=== PATIENT | male | born 1945 | race Caucasian/White ===

== ENCOUNTER → 2021-07-26 16:27 | Outpatient (BNVA) | payer MEDICARE, MEDICAID, SELFPAY | PROVIDERS: Family Provider Physician Assistant Medical; PCP Physician Assistant Medical; Visit Provider Internal Medicine Cardiovascular Disease | DX: I50.33 Acute on chronic diastolic (congestive) heart failure (principal); M79.89 Other specified soft tissue disorders; R06.02 Shortness of breath; Z79.01 Long term (current) use of anticoagulants | CPT/HCPCS: 80048; 83880; 85025 ==

== ENCOUNTER → 2022-01-24 14:23 | Outpatient (BNVA) | payer MEDICARE, MEDICAID, SELFPAY | PROVIDERS: Family Provider Physician Assistant Medical; PCP Family Medicine; Visit Provider Internal Medicine Cardiovascular Disease | DX: I11.0 Hypertensive heart disease with heart failure (principal); I50.32 Chronic diastolic (congestive) heart failure; I48.11 Longstanding persistent atrial fibrillation; E03.9 Hypothyroidism, unspecified; M79.89 Other specified soft tissue disorders; L98.499 Non-pressure chronic ulcer of skin of other sites with unspecified severity | CPT/HCPCS: 36415; 80048; 83880; 99214 ==

== ENCOUNTER → 2022-02-02 10:10 | Outpatient (BNVA) | payer MEDICARE, MEDICAID, SELFPAY | PROVIDERS: Family Provider Physician Assistant Medical; PCP Family Medicine; Visit Provider Internal Medicine Cardiovascular Disease | DX: I50.32 Chronic diastolic (congestive) heart failure (principal); R00.1 Bradycardia, unspecified; M79.89 Other specified soft tissue disorders; R55 Syncope and collapse | CPT/HCPCS: 80048; 83880 ==

== ENCOUNTER → 2022-02-15 09:16 | Outpatient (BNVA) | payer MEDICARE, MEDICAID, SELFPAY | PROVIDERS: Family Provider Physician Assistant Medical; PCP Family Medicine; Visit Provider Internal Medicine Cardiovascular Disease | DX: I48.11 Longstanding persistent atrial fibrillation (principal); I50.32 Chronic diastolic (congestive) heart failure; M79.89 Other specified soft tissue disorders; R00.1 Bradycardia, unspecified; R55 Syncope and collapse; I10 Essential (primary) hypertension | CPT/HCPCS: 80048; 83880 ==

== ENCOUNTER 2022-02-16 12:48 | Outpatient (CLI) | payer MEDICARE, MEDICAID, SELFPAY ==
--- NOTE | 2022-02-16 15:00 | USCV_ITS ---
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 CONCLUSIONS 1. Noncompressible ankle vessels bilaterally 2. Possibly no significant arterial obstruction, based on the above findings. Dr Gene Del Rio MD [facility] (Electronically Signed) Final Date: 19 Feb 2022 16:04 S
== END 2022-02-16 12:49 | disposition home or self-care (01) ==
LOC: RAD 12:53
PROVIDERS: PCP Family Medicine; Visit Provider Internal Medicine Cardiovascular Disease
DX: L97.929 Non-pressure chronic ulcer of unspecified part of left lower leg with unspecified severity (principal); L97.919 Non-pressure chronic ulcer of unspecified part of right lower leg with unspecified severity
CPT/HCPCS: 93925

== ENCOUNTER 2022-03-29 11:03 | Outpatient (CLI) | payer MEDICARE, MEDICAID, SELFPAY ==
--- NOTE | 2022-03-29 11:12 | USCV_ITS ---
Ashkan Janine Age: 77 Gender: M : 1945 Exam Date: 03/29/2022 11:22 Ordering Phys: Gene Del Rio MD ([email or web address]) Technologist: Exam Location: [facility] [place] Indication: short of breath BP: 125 / 72 HR: 86 Rhythm: Sinus Technical Quality: Adequate MEASUREMENTS (Male / Female) Normal Values 2D ECHO LV Diastolic Diameter PLAX 4.1 cm 4.2 - 5.9 / 3.9 - 5.3 cm LV Systolic Diameter PLAX 2.0 cm IVS Diastolic Thickness 1.4 cm 0.6 - 1.0 / 0.6 - 0.9 cm IVS Systolic Thickness 1.6 cm LVPW Diastolic Thickness 1.5 cm 0.6 - 1.0 / 0.6 - 0.9 cm LVPW Systolic Thickness 2.1 cm LVOT Diameter 2.0 cm LV Ejection Fraction 2D Teich 82.9 % LV Ejection Fraction MOD 2C 64.5 % LV Ejection Fraction 2C AL 65.0 % LA Diameter 4.9 cm Aorta at Sinotubular Diameter 2.9 cm M-MODE Aortic Annulus Diameter 3.4 cm LA Ao Ratio MM 1.7 MV E Point Septal Separation 0.9 cm DOPPLER AV Peak Velocity 167.0 cm/s LVOT Peak Velocity 171.0 cm/s AV Area Cont Eq vti 3.4 cm squared AV Area Cont Eq pk 3.3 cm squared MV Area PHT 5.0 cm squared Mitral E to A Ratio 1.7 MV E' Velocity 59.5 cm/s Mitral E to MV E' Ratio 11.5 Mitral E to LV E' Lateral Ratio 9.8 Mitral E to LV E' Septal Ratio 13.8 TR Peak Velocity 349.5 cm/s TR Peak Gradient 48.9 mmHg TV Peak E Velocity 123.0 cm/s Right Atrial Pressure 3.0 mmHg Pulmonary Artery Systolic Pressu 51.9 mmHg FINDINGS Left Ventricle Normal left ventricular size and systolic function, EF 70 %. Moderate left ventricular hypertrophy. No regional wall motion abnormalities. Right Ventricle The right ventricle is normal in size and function. Right Atrium Moderately increased right atrial size. Left Atrium Mildly increased left atrial size. Mitral Valve Mild mitral valve regurgitation. Aortic Valve Thickened aortic valve. Tricuspid Valve Trace to mild tricuspid valve regurgitation. Estimated pulmonary artery peak systolic pressure 52 mmHg Pulmonic Valve Pulmonic valve not well visualized. Pericardium Normal pericardium without effusion. Aorta Normal ascending aorta dimension. IVC The inferior vena cava pulmonary and hepatic veins appear normal. CONCLUSIONS Normal left ventricular size and systolic function, EF 70 %. Moderate left ventricular hypertrophy. No regional wall motion abnormalities. Biatrial enlargement, moderately dilated right atrium and mildly dilated left atrium Moderate pulmonary hypertension with an estimated pulmonary artery peak systolic pressure 53 mmHg. Mild mitral valve regurgitation. Trace to mild tricuspid valve regurgitation. There is no pericardial effusion. There are no intracardiac masses. Compared to the study from 12/23/2018, there is worsening of the pulmonary hypertension Dr Gene Del Rio MD [facility] (Electronically Signed) Final Date: 30 March 2022 17:35 S
== END 2022-03-29 11:04 | disposition home or self-care (01) ==
LOC: RAD 11:05
PROVIDERS: PCP Family Medicine; Visit Provider Internal Medicine Cardiovascular Disease
DX: I50.32 Chronic diastolic (congestive) heart failure (principal); R00.1 Bradycardia, unspecified; I48.11 Longstanding persistent atrial fibrillation; I51.7 Cardiomegaly; I08.1 Rheumatic disorders of both mitral and tricuspid valves
CPT/HCPCS: 93306

== ENCOUNTER → 2022-07-25 13:15 | Outpatient (BNVA) | payer MEDICARE, MEDICAID, SELFPAY | PROVIDERS: PCP Family Medicine; Visit Provider Internal Medicine Cardiovascular Disease | DX: I48.11 Longstanding persistent atrial fibrillation (principal); Z79.01 Long term (current) use of anticoagulants; I11.0 Hypertensive heart disease with heart failure; I50.32 Chronic diastolic (congestive) heart failure; E03.9 Hypothyroidism, unspecified; I27.20 Pulmonary hypertension, unspecified | CPT/HCPCS: 99214 ==

== ENCOUNTER 2022-10-26 14:54 | Emergency (ER) | payer MEDICARE, MEDICAID, SELFPAY ==
[2022-10-26] VITALS (11 sets, daily range): BP systolic 98–121; BP diastolic 37–72; PULSE 55–75; RESP 14–36; TEMP 36.3–36.4; O2SAT 96–100
--- NOTE | 2022-10-26 15:03 | W.ED.GENADLT ---
Documented by User: Kristi Samano MD 10/27/22 06:48 HPI - General Adult General: Chief complaint: ER Hold Stated complaint: GENERAL WEAKNESS/ TARRY STOOLS Time Seen by Provider: 10/26/22 14:58 History of Present Illness: This patient is a 77 year old presenting from home by EMS for weakness, nausea, malaise, feeling like he is going to pass out when he stands up. He has had these symptoms for about 3 days. EMS reports that they were told that he has been having black tarry stools. He denies diarrhea, denies urinary symptoms. Denies fever. He denies any liver problems. He is on Eliquis. He has a hard time giving specifics of his complaint. He is pale and a bit clammy. PFS ED PFSH: Medical History (Updated 10/27/22 @ 06:48 by Kristi Samano MD) Atrial fibrillation CHF (congestive heart failure) Glaucoma Gout History of CVA (cerebrovascular accident) Hypertension Hypothyroidism Leg swelling Near syncope Osteoarthritis Surgical History Status post right foot surgery Family History Brother CAD (coronary artery disease) Cancer Chronic kidney disease (CKD) Suicide Mother Diabetes Father Lung disease Other Hypertension Denies family history of Clotting disorder Dementia Anesthesia complication Bleeding disorder Stroke Social History Smoking and tobacco status: never smoked Alcohol intake: current Alcohol intake frequency: 3 or more drinks per day Alcohol type: beer Substance/Drug Use: never Lives independently: Yes Household members: spouse Marital status: Physical Exam Const: COMMON NORMALS: alert GENERAL APPEARANCE: cooperative, comfortable, anxious, ill appearing and diaphoretic ORIENTATION/CONSCIOUSNESS: Yes awake, Yes oriented to person, Yes oriented to place and Yes oriented to time HENMT: HEAD & SCALP: normal to inspection FACE & SINUS: normal facial exam Eye: GENERAL EYE: appearance normal, both eyes and all related structures Neck/C-Spine: COMMON NORMALS: supple, no meningeal signs and no JVD Chest: COMMONS NORMALS: normal inspection of the chest Resp: COMMON NORMALS: normal respiratory effort, No use of accessory muscles and clear to auscultation bilaterally AUSCULTATION: clear to auscultation bilaterally Cardio: COMMON NORMALS: no JVD, regular rate, regular rhythm and No murmurs present (Cardio) RATE: regular rate RHYTHM: regular rhythm GI: COMMON NORMALS: No hepatosplenomegaly present INSPECTION: Yes normal to inspection and Yes central obesity AUSCULTATION: Yes normoactive bowel sounds PALPATION: Yes Tenderness to palpation present (GI) (diffusely) Details: LLQ and Yes No hepatosplenomegaly present RECTAL EXAM: Yes deferred (patient in a cuenca bed at the time of exam - room placement pending) Back/Pelvis: COMMON NORMALS: thoracic and lumbar spine normal to inspection Extremity: COMMON NORMALS: normal to inspection Neuro: COMMON NORMALS: moves all extremities, no focal motor deficits and no sensory deficits noted SENSORIUM/ORIENTATION: Yes alert, Yes oriented to person, Yes oriented to place and Yes oriented to time MENINGEAL SIGNS: Yes no meningeal signs Psych: COMMON NORMALS: mental status grossly normal, cooperative and normal affect Skin: GENERAL SKIN EXAM: pallor Course Vital Signs: Vital signs: Vital Signs Temperature 97.5 F L 10/26/22 21:39 Pulse Rate 62 10/26/22 22:14 Respiratory Rate 19 H 10/26/22 22:14 Blood Pressure 112/49 10/26/22 22:14 Pulse Oximetry 100 10/26/22 22:14 Oxygen Delivery Me thod 10/26/22 22:14 Oxygen Flow Rate 2 10/26/22 22:14 [facility] - General Adult Medical Decision Making Several days of weakness, lightheadedness, malaise - reported GI bleeding, melena on a blood thinner. Ill appearing of arrival but with normal vitals at this time. Labs, EKG, pending. Plan for CT given his abdominal tenderness. Cardiac work up as well due to his near syncopal symptoms, diaphoresis. Type and screen as he may need blood. Patient very symptomatic. Will admit - consulted surgery for scope, which will have to wait for Saturday as he did take his eliquis this morning. Patient presents with an upper GI bleed he did require blood transfusion did have some hypotension will transfer to [place] for ICU bed availability at this time. Lab Data 10/26/22 18:35 10/26/22 14:15 Radiology Impressions Abdomen/Pelvis CT 10/26/22 15:10 IMPRESSION: 1. Negative for contrast extravasation seen to indicate gastrointestinal bleeding. 2. Cardiomegaly. 3. Bibasilar atelectasis. 4. Cholelithiasis. 5. Pancreatic uncinate process 19 mm cystic lesion. Reimaging every 6 months for 2 years, then every 1 year for 2 years, then every 2 years for 6 years is recommended. Alternatively, endoscopic ultrasound with fine needle aspiration is recommended. (Reference: Xochitl, 2017) REFERENCES: Xochitl MARTINES, et al. Management of Incidental Pancreatic Cysts: A White Paper of the ACR Incidental Findings Committee. J Am Tere Radiol. 2017;14(7):911-923. Chest X-Ray 10/26/22 18:45 IMPRESSION: Cardiomegaly, negative for infiltrate Laboratory Results WBC 8.8 10^3/uL (4.0-10.0) 10/26/22 14:15 RBC 3.19 10^6/uL (4.1-5.3) L 10/26/22 14:15 Hgb 9.3 g/dL (11.7-16.6) L 10/26/22 22:01 Hct 29.4 % (42.0-52.0) L 10/26/22 22:01 MCV 94.0 fl (80-94) 10/26/22 14:15 MCH 29.8 pg (28.0-34.0) 10/26/22 14:15 MCHC 31.7 g/dL (30.0-36.0) 10/26/22 14:15 RDW 13.4 % (12.1-15.1) 10/26/22 14:15 Plt Count 169 10^3/cmm (130-400) 10/26/22 14:15 MPV 12.5 fL (7.4-10.4) H 10/26/22 14:15 Neut % (Auto) 60.9 % 10/26/22 14:15 Lymph % (Auto) 25.6 % 10/26/22 14:15 [place] % (Auto) 8.9 % 10/26/22 14:15 Eos % (Auto) 3.0 % 10/26/22 14:15 Baso % (Auto) 0.9 % 10/26/22 14:15 Neut # (Auto) 5.37 10^3/uL (1.8-7.7) 10/26/22 14:15 Lymph # (Auto) 2.3 10^3/uL (0.8-4.8) 10/26/22 14:15 [place] # (Auto) 0.8 10^3/uL (0.2-0.9) 10/26/22 14:15 Eos # (Auto) 0.3 10^3/uL (0.0-0.8) 10/26/22 14:15 Baso # (Auto) 0.1 10^3/uL (0.0-0.1) 10/26/22 14:15 Nucleated RBC % (auto) 0 % 10/26/22 14:15 Nucleated RBCs # 0.0 /100WBC 10/26/22 14:15 PT 19.40 SECONDS (12.1-14.9) H 10/26/22 15:40 INR 1.60 (0.8-1.2) H 10/26/22 15:40 Sodium 142 mmol/L (136-145) 10/26/22 14:15 Potassium 4.4 mmol/L (3.5-5.1) 10/26/22 14:15 Chloride 105 mmol/L (98-107) 10/26/22 14:15 Carbon Dioxide 23 mmol/L (22-29) 10/26/22 14:15 Anion Gap 18.4 (5-19) 10/26/22 14:15 BUN 56 mg/dL (8-23) H 10/26/22 14:15 Creatinine 1.5 mg/dL (0.7-1.2) H 10/26/22 14:15 GFR Calculation Not Reportable 10/26/22 14:15 Glucose 150 mg/dL (65-115) H 10/26/22 14:15 Calculated Osmolality 312 mOsm/kg (285-295) H 10/26/22 14:15 Lactic Acid 3.3 mmol/L (0.5-2.2) H 10/26/22 15:40 Lactic Acid (Sepsis) 2.5 mmol/L (0.5-2.2) H 10/26/22 17:46 Calcium 8.8 mg/dL (8.5-10.5) 10/26/22 14:15 Magnesium 2.2 mg/dL (1.7-2.3) 10/26/22 14:15 Total Bilirubin 0.3 mg/dL (0.15-1.2) 10/26/22 14:15 AST 22 U/L (0-40) 10/26/22 14:15 ALT 17 U/L (0-41) 10/26/22 14:15 Alkaline Phosphatase 85 U/L (40-130) 10/26/22 14:15 Troponin T Baseline 28 ng/L (0-15) H 10/26/22 14:15 Troponin T 120 Minute 29.04 ng/L (0-15) H 10/26/22 16:17 Delta Troponin T 1.04 ABS# (0-10) 10/26/22 16:17 Troponin T Hi Sens 6Hr 27.37 ng/L (0-15) H 10/26/22 19:50 Troponin T Hi Sens 6Hr Delta -0.63 ng/L (0-12) L 10/26/22 19:50 Total Protein 6.2 g/dL (6.6-8.7) L 10/26/22 14:15 Albumin 3.6 g/dL (3.5-5.2) 10/26/22 14:15 Globulin 2.6 g/dL (1.3-4.6) 10/26/22 14:15 Lipase 16 U/L (13-60) 10/26/22 14:15 Urine Color Yellow (Yellow) 10/26/22 16:45 Urine Appearance Clear (CLEAR) 10/26/22 16:45 Urine pH 5 (5-7) 10/26/22 16:45 Ur Specific [place] 1.015 (1.005-1.030) 10/26/22 16:45 Urine Protein Neg (Negative) 10/26/22 16:45 Urine Glucose (UA) Norm (Normal) 10/26/22 16:45 Urine Ketones Negative (Negative) 10/26/22 16:45 Urine Blood Neg (Negative) 10/26/22 16:45 Urine Nitrate Negative (Negative) 10/26/22 16:45 Urine Bilirubin Neg (Negative) 10/26/22 16:45 Urine Urobilinogen Norm mg/dL (Negative) 10/26/22 16:45 Ur Leukocyte Esterase Negative (Negative) 10/26/22 16:45 Blood Type A Positive 10/26/22 16:17 Rho(D) Type Positive 10/26/22 16:17 Antibody Screen Negative 10/26/22 16:17 Crossmatch See Detail 10/26/22 16:17 Discharge Plan Discharge Patient Disposition: Xfer Short-Term Hosp Clinical Impression: Acute upper GI bleed, Atrial fibrillation, Near syncope, Symptomatic anemia, Anticoagulated by anticoagulation treatment Condition: Stable Referrals: Nino Mcgarry [Primary Care Provider] - Coding Level of Care Code ED Publication Specialist for Chg Fwd Exam Comprehensive Documented by User: Bret Glynn MD 10/26/22 21:22 HPI - General Adult General: Chief complaint: ER Hold Stated complaint: GENERAL WEAKNESS/ TARRY STOOLS Time Seen by Provider: 10/26/22 14:58 PFSH ED PFSH: Medical History (Updated 10/27/22 @ 06:48 by Kristi Samano MD) Atrial fibrillation CHF (congestive heart failure) Glaucoma Gout History of CVA (cerebrovascular accident) Hypertension Hypothyroidism Leg swelling Near syncope Osteoarthritis Surgical History Status post right foot surgery Family History Brother CAD (coronary artery disease) Cancer Chronic kidney disease (CKD) Suicide Mother Diabetes Father Lung disease Other Hypertension Denies family history of Clotting disorder Dementia Anesthesia complication Bleeding disorder Stroke Social History Smoking and tobacco status: never smoked Alcohol intake: current Alcohol intake frequency: 3 or more drinks per day Alcohol type: beer Substance/Drug Use: never Lives independently: Yes Household members: spouse Marital status: Course Vital Signs: Vital signs: Vital Signs Temperature 97.5 F L 10/26/22 21:39 Pulse Rate 62 10/26/22 22:14 Respiratory Rate 19 H 10/26/22 22:14 Blood Pressure 112/49 10/26/22 22:14 Pulse Oximetry 100 10/26/22 22:14 Oxygen Delivery Me thod 10/26/22 22:14 Oxygen Flow Rate 2 10/26/22 22:14 MDM - General Adult Medical Decision Making Several days of weakness, lightheadedness, malaise - reported GI bleeding, melena on a blood thinner. Ill appearing of arrival but with normal vitals at this time. Labs, EKG, pending. Plan for CT given his abdominal tenderness. Cardiac work up as well due to his near syncopal symptoms, diaphoresis. Type and screen as he may need blood. Patient very symptomatic. Will admit - consulted surgery for scope, which will have to wait for Saturday as he did take his eliquis this morning. Patient presents with an upper GI bleed he did require blood transfusion did have some hypotension will transfer to [place] for ICU bed availability at this time. Lab Data 10/26/22 18:35 10/26/22 14:15 Radiology Impressions Abdomen/Pelvis CT 10/26/22 15:10 IMPRESSION: 1. Negative for contrast extravasation seen to indicate gastrointestinal bleeding. 2. Cardiomegaly. 3. Bibasilar atelectasis. 4. Cholelithiasis. 5. Pancreatic uncinate process 19 mm cystic lesion. Reimaging every 6 months for 2 years, then every 1 year for 2 years, then every 2 years for 6 years is recommended. Alternatively, endoscopic ultrasound with fine needle aspiration is recommended. (Reference: Xochitl, 2017) REFERENCES: Xochitl MARTINES, et al. Management of Incidental Pancreatic Cysts: A White Paper of the ACR Incidental Findings Committee. J Am Tere Radiol. 2017;14(7):911-923. Chest X-Ray 10/26/22 18:45 IMPRESSION: Cardiomegaly, negative for infiltrate Laboratory Results WBC 8.8 10^3/uL (4.0-10.0) 10/26/22 14:15 RBC 3.19 10^6/uL (4.1-5.3) L 10/26/22 14:15 Hgb 9.3 g/dL (11.7-16.6) L 10/26/22 22:01 Hct 29.4 % (42.0-52.0) L 10/26/22 22:01 MCV 94.0 fl (80-94) 10/26/22 14:15 MCH 29.8 pg (28.0-34.0) 10/26/22 14:15 MCHC 31.7 g/dL (30.0-36.0) 10/26/22 14:15 RDW 13.4 % (12.1-15.1) 10/26/22 14:15 Plt Count 169 10^3/cmm (130-400) 10/26/22 14:15 MPV 12.5 fL (7.4-10.4) H 10/26/22 14:15 Neut % (Auto) 60.9 % 10/26/22 14:15 Lymph % (Auto) 25.6 % 10/26/22 14:15 [place] % (Auto) 8.9 % 10/26/22 14:15 Eos % (Auto) 3.0 % 10/26/22 14:15 Baso % (Auto) 0.9 % 10/26/22 14:15 Neut # (Auto) 5.37 10^3/uL (1.8-7.7) 10/26/22 14:15 Lymph # (Auto) 2.3 10^3/uL (0.8-4.8) 10/26/22 14:15 [place] # (Auto) 0.8 10^3/uL (0.2-0.9) 10/26/22 14:15 Eos # (Auto) 0.3 10^3/uL (0.0-0.8) 10/26/22 14:15 Baso # (Auto) 0.1 10^3/uL (0.0-0.1) 10/26/22 14:15 Nucleated RBC % (auto) 0 % 10/26/22 14:15 Nucleated RBCs # 0.0 /100WBC 10/26/22 14:15 PT 19.40 SECONDS (12.1-14.9) H 10/26/22 15:40 INR 1.60 (0.8-1.2) H 10/26/22 15:40 Sodium 142 mmol/L (136-145) 10/26/22 14:15 Potassium 4.4 mmol/L (3.5-5.1) 10/26/22 14:15 Chloride 105 mmol/L (98-107) 10/26/22 14:15 Carbon Dioxide 23 mmol/L (22-29) 10/26/22 14:15 Anion Gap 18.4 (5-19) 10/26/22 14:15 BUN 56 mg/dL (8-23) H 10/26/22 14:15 Creatinine 1.5 mg/dL (0.7-1.2) H 10/26/22 14:15 GFR Calculation Not Reportable 10/26/22 14:15 Glucose 150 mg/dL (65-115) H 10/26/22 14:15 Calculated Osmolality 312 mOsm/kg (285-295) H 10/26/22 14:15 Lactic Acid 3.3 mmol/L (0.5-2.2) H 10/26/22 15:40 Lactic Acid (Sepsis) 2.5 mmol/L (0.5-2.2) H 10/26/22 17:46 Calcium 8.8 mg/dL (8.5-10.5) 10/26/22 14:15 Magnesium 2.2 mg/dL (1.7-2.3) 10/26/22 14:15 Total Bilirubin 0.3 mg/dL (0.15-1.2) 10/26/22 14:15 AST 22 U/L (0-40) 10/26/22 14:15 ALT 17 U/L (0-41) 10/26/22 14:15 Alkaline Phosphatase 85 U/L (40-130) 10/26/22 14:15 Troponin T Baseline 28 ng/L (0-15) H 10/26/22 14:15 Troponin T 120 Minute 29.04 ng/L (0-15) H 10/26/22 16:17 Delta Troponin T 1.04 ABS# (0-10) 10/26/22 16:17 Troponin T Hi Sens 6Hr 27.37 ng/L (0-15) H 10/26/22 19:50 Troponin T Hi Sens 6Hr Delta -0.63 ng/L (0-12) L 10/26/22 19:50 Total Protein 6.2 g/dL (6.6-8.7) L 10/26/22 14:15 Albumin 3.6 g/dL (3.5-5.2) 10/26/22 14:15 Globulin 2.6 g/dL (1.3-4.6) 10/26/22 14:15 Lipase 16 U/L (13-60) 10/26/22 14:15 Urine Color Yellow (Yellow) 10/26/22 16:45 Urine Appearance Clear (CLEAR) 10/26/22 16:45 Urine pH 5 (5-7) 10/26/22 16:45 Ur Specific [place] 1.015 (1.005-1.030) 10/26/22 16:45 Urine Protein Neg (Negative) 10/26/22 16:45 Urine Glucose (UA) Norm (Normal) 10/26/22 16:45 Urine Ketones Negative (Negative) 10/26/22 16:45 Urine Blood Neg (Negative) 10/26/22 16:45 Urine Nitrate Negative (Negative) 10/26/22 16:45 Urine Bilirubin Neg (Negative) 10/26/22 16:45 Urine Urobilinogen Norm mg/dL (Negative) 10/26/22 16:45 Ur Leukocyte Esterase Negative (Negative) 10/26/22 16:45 Blood Type A Positive 10/26/22 16:17 Rho(D) Type Positive 10/26/22 16:17 Antibody Screen Negative 10/26/22 16:17 Crossmatch See Detail 10/26/22 16:17 Critical Care Time Critical Care Time: Critical Care Time: Yes Total Critical Care Time: 45 Attestation: The high probability of a clinically significant, sudden or life threatening deterioration of the patient's gi system(s) required my full and direct attention, intervention and personal management. The critical care time is as shown. This time is in addition to time spent performing any reported procedures but includes the following: [x] Data and vital sign review and interpretation [x] Patient assessment, examination and intervention [x] Documentation [x] Medication orders and management Discharge Plan Discharge Patient Disposition: Xfer Short-Term Hosp Clinical Impression: Acute upper GI bleed, Atrial fibrillation, Near syncope, Symptomatic anemia, Anticoagulated by anticoagulation treatment Condition: Stable Referrals: Nino Mcgarry [Primary Care Provider] - Coding Level of Care Code ED Publication Specialist for Chg Fwd Exam Comprehensive
--- NOTE | 2022-10-26 15:05 | ECG_ITS ---
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 Measurements Intervals [place] Rate: 67 P: 0 MD: 0 QRS: 268 QRSD: 139 T: 10 QT: 430 QTc: 456 Interpretive Statements ATRIAL FIBRILLATION RIGHT AXIS DEVIATION [QRS AXIS > 100] RIGHT BUNDLE BRANCH BLOCK [120+ ms QRS DURATION, UPRIGHT V1, 40+ ms S IN I/aVL/V4/V5/V6] ST DEPRESSION, CONSIDER SUBENDOCARDIAL INJURY [0.1+ mV ST DEPRESSION] Compared to ECG 12/23/2018 12:49:48 Right-axis deviation now present Right bundle-branch block now present ST (T wave) deviation now present T-wave abnormality no longer present Electronically Signed On 10-26-2022 17:52:33 [facility] by Juan Garcia M.D. [id number]
--- NOTE | 2022-10-26 15:10 | CTR_ITS ---
PROCEDURE INFORMATION: Exam: CT Abdomen And Pelvis With Contrast Exam date and time: 10/26/2022 4:24 PM Age: 77 years old Clinical indication: Abdominal pain; Generalized; Patient HX: PT denies surg HX on ap; Additional info: Abdominal pain, gi bleeding TECHNIQUE: Imaging protocol: Computed tomography of the abdomen and pelvis with contrast. Radiation optimization: All CT scans at this facility use at least one of these dose optimization techniques: automated exposure control; mA and/or kV adjustment per patient size (includes targeted exams where dose is matched to clinical indication); or iterative reconstruction. Contrast material: OMNIPAQUE 350; Contrast volume: 95 ml; Contrast route: INTRAVENOUS (IV); COMPARISON: CR XR chest 1V [id number] 12/23/2018 1:39 PM RADIATION DOSE METRICS: Total DLP (mGy-cm): 1139.63 FINDINGS: Lungs: Bibasilar atelectasis. Heart: Cardiomegaly. Liver: Normal. No mass. Gallbladder and bile ducts: Cholelithiasis. Pancreas: Pancreatic uncinate process 19 mm cystic lesion Spleen: Normal. No splenomegaly. Adrenal glands: Normal. No mass. Kidneys and ureters: Normal. No hydronephrosis. Stomach and bowel: Unremarkable. No obstruction. No mucosal thickening. Appendix: No evidence of appendicitis. Intraperitoneal space: Unremarkable. No free air. No significant fluid collection. Vasculature: Unremarkable. No abdominal aortic aneurysm. Lymph nodes: Unremarkable. No enlarged lymph nodes. Urinary bladder: Unremarkable as visualized. Reproductive: Unremarkable as visualized. Bones/joints: Unremarkable. No acute fracture. Soft tissues: Unremarkable. CT/CT abdomen pelvis w con* [id number] IMPRESSION: 1. Negative for contrast extravasation seen to indicate gastrointestinal bleeding. 2. Cardiomegaly. 3. Bibasilar atelectasis. 4. Cholelithiasis. 5. Pancreatic uncinate process 19 mm cystic lesion. Reimaging every 6 months for 2 years, then every 1 year for 2 years, then every 2 years for 6 years is recommended. Alternatively, endoscopic ultrasound with fine needle aspiration is recommended. (Reference: Xochitl, 2017) REFERENCES: Xochitl MARTINES, et al. Management of Incidental Pancreatic Cysts: A White Paper of the ACR Incidental Findings Committee. J Am Tere Radiol. 2017;14(7):911-923.
[2022-10-26 15:32] LABS: Basophils # 0.1 10^3/uL (0.0-0.1); Basophils % 0.9 %; Eosinophils # 0.3 10^3/uL (0.0-0.8); Hemoglobin 9.5 g/dL (11.7-16.6); Lymphocytes # 2.3 10^3/uL (0.8-4.8); Lymphocytes % 25.6 %; Mean Corpuscular HGB Conc 31.7 g/dL (30.0-36.0); Mean Corpuscular Hemoglobin 29.8 pg (28.0-34.0); Mean Platelet Volume 12.5 fL (7.4-10.4); Monocytes # 0.8 10^3/uL (0.2-0.9); Monocytes % 8.9 %; Neutrophils # 5.37 10^3/uL (1.8-7.7); Neutrophils % 60.9 %; Nucleated Red Blood Cells % 0 %; Platelet Count 169 10^3/cmm (130-400); Red Blood Count 3.19 10^6/uL (4.1-5.3); Red Cell Distribution Width 13.4 % (12.1-15.1); White Blood Count 8.8 10^3/uL (4.0-10.0)
[2022-10-26] MEDS: famotidine 20 mg/2 mL INJ 40 MG IVP (15:48)
[2022-10-26 15:54] LABS: Troponin(5th) Baseline 28 ng/L (0-15)
[2022-10-26 15:56] LABS: Alanine Aminotransferase 17 U/L (0-41); Albumin Level 3.6 g/dL (3.5-5.2); Alkaline Phosphatase 85 U/L (40-130); Anion Gap 18.4 (5-19); Aspartate Amino Transferase 22 U/L (0-40); Blood Urea Nitrogen 56 mg/dL (8-23); Calcium 8.8 mg/dL (8.5-10.5); Carbon Dioxide 23 mmol/L (22-29); Chloride 105 mmol/L (98-107); Globulin 2.6 g/dL (1.3-4.6); Glucose 150 mg/dL (65-115); Lipase 16 U/L (13-60); Magnesium 2.2 mg/dL (1.7-2.3); Osmolality Calculated 312 mOsm/kg (285-295); Potassium 4.4 mmol/L (3.5-5.1); Sodium 142 mmol/L (136-145); Total Bilirubin 0.3 mg/dL (0.15-1.2); Total Protein 6.2 g/dL (6.6-8.7)
[2022-10-26 16:10] LABS: Lactic Sepsis W/Reflex 3.3 mmol/L (0.5-2.2)
[2022-10-26] MEDS: iohexol 350 mg/mL 500 mL Btl (per mL) IV (16:27)
[2022-10-26 16:52] LABS: Add Urine Microscopic? NO; Charge for UA Resulting for Rev
[2022-10-26 16:53] LABS: Troponin 5 2HR 29.04 ng/L (0-15)
[2022-10-26 16:56] LABS: Troponin 5 2HR Delta 1.04 ABS# (0-10)
--- NOTE | 2022-10-26 16:59 | ECG_ITS ---
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 Measurements Intervals [place] Rate: 73 P: 0 CA: 0 QRS: 244 QRSD: 113 T: 43 QT: 423 QTc: 467 Interpretive Statements ATRIAL FIBRILLATION INCOMPLETE RIGHT BUNDLE BRANCH BLOCK [90+ ms QRS DURATION, TERMINAL R IN V1/V2, 40+ ms S IN I/aVL/V4/V5/V6] PROBABLE ANTEROLATERAL MYOCARDIAL INFARCTION , OF INDETERMINATE AGE [35 ms Q WAVE IN I/aVL/V3-V6] Compared to ECG 10/26/2022 15:05:22 Incomplete right bundle-branch block now present Myocardial infarct finding now present Right-axis deviation no longer present Right bundle-branch block no longer present ST (T wave) deviation no longer present Electronically Signed On 10-26-2022 17:52:45 [facility] by Juan Garcia M.D. [id number]
[2022-10-26 17:04] LABS: Bilirubin Urine Neg (Negative); Blood Urine Neg (Negative); Glucose Urine UA Norm (Normal); Ketones Urine Negative (Negative); Leukocyte Esterase Urine Negative (Negative); Nitrate Urine Negative (Negative); Protein Urine Neg (Negative); Specific Gravity, Urine 1.015 (1.005-1.030); Urine Appearance Clear (CLEAR); Urine Color Yellow (Yellow); Urobilinogen Urine Norm (Negative); pH Urine 5 (5-7)
[2022-10-26 17:35] LABS: Reflex Lactate Order REFLEX LACTIC ORDERD
[2022-10-26] MEDS: sodium chloride 0.9% 500 ML 999 ML IV (17:35)
[2022-10-26 18:08] LABS: Lactic Acid level (Lactate) 2.5 mmol/L (0.5-2.2)
--- NOTE | 2022-10-26 18:17 | PM.HP ---
Providers/Chief Complaint Primary Care Provider: Nino Mcgarry Chief Complaint: GENERAL WEAKNESS/ TARRY STOOLS History of Present Illness Pleasant 77-year-old gentleman with history of atrial fibrillation, on anticoagulation with Eliquis, history of CHF, denies history of NV, has had history of CVA, not on aspirin, came in due to past 3 days of black and loose stools, orthostatic symptoms, postural tachycardia. He states overall he does have to sleep in chair usually due to his congestive heart failure. He denies any chest pain or pressure. He has been getting fatigued extremely easily with ambulation with presyncopal symptoms and dyspnea on exertion ever since starting to have the melanotic BMs. Last time he took his Eliquis was at 8 AM this morning. His last bowel movement was earlier today, although he does state that he has not had quite as many bowel movements as he did yesterday. He feels nauseated with some dry heaves, but has nothing to vomit up. He denies any history of liver cirrhosis. He states he does drink a sixpack every other day. He also takes Aleve for arthritic pain. He has never had an EGD. He says he had a colonoscopy but it was probably about 10 years ago. Here his blood pressure is 113/50. Prior in July was 143/75. Hemoglobin is 9.5. We do not have a recent value, in July [address] abdomen pelvis with contrast. 1. Negative for contrast extravasation seen to indicate gastrointestinal bleeding. 2. Cardiomegaly. 3. Bibasilar atelectasis. 4. Cholelithiasis. 5. Pancreatic uncinate process 19 mm cystic lesion. Reimaging every 6 months for 2 years, then every 1 year for 2 years, then every 2 years for 6 years is recommended. Alternatively, endoscopic ultrasound with fine needle aspiration is recommended. (Reference: Xochitl, 2017) Review of Systems Const: Denies: fever(s), chills, body aches or malaise Eyes: Denies: change in vision, eye discomfort or eye redness ENMT: Denies: throat pain, oral sores or ear or mastoid pain Card: Reports: edema (chronic), lightheadedness, pre-syncope and dyspnea on exertion; Denies: chest pain or syncope Resp: Denies: dyspnea, productive cough, change in phlegm color or hemoptysis GI: Reports: melena; Denies: abdominal pain, nausea, vomiting, diarrhea, constipation or hematochezia : Denies: flank pain, difficulty urinating, urinary frequency or hematuria Musc: Denies: back pain, joint swelling or joint redness Skin/Breast: Denies: rash or new lesions Neuro: Reports: dizziness; Denies: headache(s), numbness in extremities, weakness in extremities, confusion or seizure-like activity Endo: Denies: polyuria or polydipsia Farzad/Lymph: Denies: easy bleeding or tender lymph nodes All/Imm: Denies: urticaria or tongue swelling Medications/Allergies Home Medications Medication Instructions Recorded Confirmed Last Taken Type doxycycline hyclate 100 mg tablet 100 mg PO Q12H 07/26/21 Unknown History terazosin 2 mg capsule 2 mg PO BEDTIME 07/26/21 Unknown History fluticasone propionate 50 2 spray intranasal DAILY 01/24/22 Unknown History mcg/actuation nasal spray,suspension felodipine 10 mg tablet,extended See Rx Instructions .Route 03/06/22 Unknown Rx release 24 hr .COMPLEX #90 tabs losartan 100 mg tablet See Rx Instructions .Route 04/27/22 Unknown Rx .COMPLEX #90 tabs apixaban 5 mg tablet (Eliquis) 5 mg PO BID #180 tabs 06/01/22 Unknown Rx atorvastatin 20 mg tablet 20 mg PO DAILY 07/25/22 Unknown History fluoxetine 10 mg capsule 10 mg PO DAILY 07/25/22 Unknown History furosemide 40 mg tablet 40 mg PO BID 07/25/22 Unknown History gabapentin 400 mg capsule 800 mg PO BEDTIME 07/25/22 Unknown History isosorbide mononitrate 60 mg 30 mg PO DAILY 07/25/22 Unknown History tablet,extended release 24 hr ketoconazole 2 % shampoo 1 applic topical .2xwk 07/25/22 Unknown History levothyroxine 75 mcg tablet 75 mcg PO DAILY 07/25/22 Unknown History mupirocin 2 % topical ointment 1 applic topical BID 07/25/22 Unknown History potassium chloride 10 mEq 10 meq PO DAILY 07/25/22 Unknown History capsule,extended release probenecid-colchicine tablet 1 tab PO BID 07/25/22 Unknown History spironolactone 25 mg tablet 50 mg PO DAILY 07/25/22 Unknown History Allergies Allergy/AdvReac Type Severity Reaction Status Date / Time lisinopril Allergy Mild Unknown Verified 07/25/22 08:31 PFSH Acute PFSH: Medical History (Updated 10/26/22 @ 18:47 by Dez Young MD) Atrial fibrillation CHF (congestive heart failure) Glaucoma Gout History of CVA (cerebrovascular accident) Hypertension Hypothyroidism Leg swelling Near syncope Osteoarthritis Surgical History Status post right foot surgery Family History Brother CAD (coronary artery disease) Cancer Chronic kidney disease (CKD) Suicide Mother Diabetes Father Lung disease Other Hypertension Denies family history of Clotting disorder Dementia Anesthesia complication Bleeding disorder Stroke Social History Smoking and tobacco status: never smoked Alcohol intake: current Alcohol intake frequency: 3 or more drinks per day Alcohol type: beer Substance/Drug Use: never Lives independently: Yes Household members: spouse Marital status: Vitals/I&O/Wt Last Vital Signs Pulse 74 10/26/22 17:39 Resp 16 10/26/22 17:39 BP 113/50 10/26/22 17:27 Pulse Ox 99 10/26/22 17:39 O2 Del Method 10/26/22 17:27 Physical Exam Narrative: at bedside Const: COMMON NORMALS: patient oriented x3 and alert GENERAL APPEARANCE: cooperative and frail appearing ORIENTATION/CONSCIOUSNESS: Yes awake HENMT: COMMON NORMALS: oropharynx normal Neck/C-Spine: COMMON NORMALS: no JVD Resp: COMMON NORMALS: normal respiratory effort and clear to auscultation bilaterally AUSCULTATION: clear to auscultation bilaterally Cardio: COMMON NORMALS: no JVD, regular rhythm, S1 normal heart sound present, S2 normal heart sound present and No murmurs present (Cardio) RHYTHM: regular rhythm HEART SOUNDS: S1 normal heart sound present and S2 normal heart sound present GI: COMMON NORMALS: Normal to inspection, nondistended, normoactive bowel sounds present, Soft to palpation and non-tender PALPATION: Yes Soft to palpation Extremity: COMMON NORMALS: no joint enlargement GENERAL: Yes edema (trace at ankles) Neuro: COMMON NORMALS: patient oriented x3 and moves all extremities SENSORIUM/ORIENTATION: Yes alert Skin: COMMON NORMALS: no rashes or lesions noted OTHER: Old abrasions, small eschar/clot over anterior [place]. Data 10/26/22 14:15 10/26/22 14:15 A&P Assessment and plan (1) GI bleeding: Orthostatic symptoms, postural tachycardia, exertional intolerance. Blood pressure soft compared to usual. Received famotidine, fluid bolus 500 mL, RBC transfusion requested. Request additional 2 units RBC, 4 units platelets to be available. Follow-up hemoglobin level. PPI IV every 12 hours 40 mg. Surgery consultation was requested as well. Hold anticoagulation. Last Eliquis dose was 8 AM this morning. NPO. Monitor in ICU. Telemetry monitoring. Suspect secondary to gastritis/PUD related to NSAIDs, possibly also EtOH. Discussed with him and his to discontinue Aleve. He also should reduce EtOH intake. (2) Pancreatic lesion: Pancreatic uncinate process 19 mm cystic lesion. Reimaging every 6 months for 2 years, then every 1 year for 2 years, then every 2 years for 6 years is recommended. Alternatively, endoscopic ultrasound with fine needle aspiration is recommended. (Reference: Xochitl, 2017) Plan Symptomatic acute blood loss anemia, hemoglobin 9.6, recheck hemoglobin 8.2. As above. Excess EtOH consumption: Sixpack of beer every other day. Monitor for withdrawal. CKD Diastolic CHF not in exacerbation LVH A. fib: Hold anticoagulation Glaucoma Gout HTN Hypothyroidism Chronic leg swelling Osteoarthritis Attestations Medical Necessity Statement*: Admission of over nights anticipated for GI bleeding, acute symptomatic anemia Critical Care Time: The high probability of a clinically significant, sudden or life threatening deterioration of the patient's GI, hematologic, hemodynamic system(s) required my full and direct attention, intervention and personal management. The critical care time is as shown. This time is in addition to time spent performing any reported procedures but includes the following: x Data and vital sign review and interpretation x Patient assessment, examination and intervention x Documentation x Medication orders and management Critical Care Time (min): 55 Coding Level of Care Code Acute Code for Chg Fwd Diagnoses GI bleeding K92.2 Pancreatic lesion K86.9
[2022-10-26 18:40] LABS: Hematocrit 25.6 % (42.0-52.0); Hemoglobin 8.2 g/dL (11.7-16.6)
--- NOTE | 2022-10-26 18:42 | PC.NURSE ---
PATIENT BEGAN FEELING SHORT OF BREATH AND RESPIRATIONS INCREASED TO 39. PATIENT BLOOD TRANSFUSION STOPPED. PROVIDER NOTIFIED.
[2022-10-26] MEDS: pantoprazole 40 mg SDV IVP (18:45)
--- NOTE | 2022-10-26 18:45 | XRR_ITS ---
PROCEDURE INFORMATION: Exam: XR Chest Exam date and time: 10/26/2022 6:51 PM Age: 77 years old Clinical indication: Shortness of breath; Additional info: SOB TECHNIQUE: Imaging protocol: Radiologic exam of the chest. Views: 1 view. COMPARISON: CR XR chest 1V [id number] 12/23/2018 1:39 PM FINDINGS: Lungs: Unremarkable. No consolidation. Pleural spaces: Unremarkable. No pleural effusion. No pneumothorax. Heart/Mediastinum: Cardiomegaly. Bones/joints: Unremarkable. XR/XR chest 1V portable [id number] IMPRESSION: Cardiomegaly, negative for infiltrate
[2022-10-26] MEDS: sodium chloride 0.9% 100 mL Bag 50 ML IV (18:46)
[2022-10-26] MEDS: LORazepam 2 mg/mL INJ 1 mL 0.5 MG IVP ×2 (18:49→23:09)
[2022-10-26] MEDS: diphenhydrAMINE 50 mg/mL SDV 1mL 25 MG IVP (18:50)
--- NOTE | 2022-10-26 18:58 | PC.NURSE ---
REPORT GIVEN TO POLINA HASSAN.
[2022-10-26 20:37] LABS: Troponin 5 6HR 27.37 ng/L (0-15)
[2022-10-26 20:53] LABS: Troponin 5 6HR Delta -0.63 ng/L (0-12)
--- NOTE | 2022-10-26 21:54 | ECG_ITS ---
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 Measurements Intervals [place] Rate: 64 P: 0 HI: 0 QRS: -72 QRSD: 111 T: 86 QT: 463 QTc: 481 Interpretive Statements ATRIAL FIBRILLATION WITH ABERRANT CONDUCTION OR VENTRICULAR PREMATURE COMPLEXES LEFT ANTERIOR FASCICULAR BLOCK [QRS AXIS <= -45, QR IN I, RS IN II] POSSIBLE ANTEROLATERAL MYOCARDIAL INFARCTION , OF INDETERMINATE AGE [30 ms Q WAVE IN I/aVL/V3-V6] Compared to ECG 10/26/2022 17:04:56 Ventricular premature complex(es) now present Aberrant conduction of supraventricular beat(s) now present Left anterior fascicular block now present Incomplete right bundle-branch block no longer present Myocardial infarct finding still present Electronically Signed On 10-26-2022 22:57:22 [employer] by Juan Garcia M.D. [id number]
[2022-10-26 22:04] LABS: Hematocrit 29.4 % (42.0-52.0); Hemoglobin 9.3 g/dL (11.7-16.6)
--- NOTE | 2022-10-27 07:11 | PC.NURSE ---
Gave pt Ativan 0.5 mg IVP. Jamal Daniel RN witnessed waste. Didn't waste in the pyxis in time before the patient was removed from the system.
== END 2022-10-26 23:19 | disposition short-term general hospital (02) ==
PROVIDERS: Emergency Medicine; Internal Medicine; Emergency Provider Emergency Medicine; PCP Family Medicine
DX: K92.2 Gastrointestinal hemorrhage, unspecified (principal); I48.91 Unspecified atrial fibrillation; R55 Syncope and collapse; D64.9 Anemia, unspecified; D68.32 Hemorrhagic disorder due to extrinsic circulating anticoagulants; I11.0 Hypertensive heart disease with heart failure; I50.9 Heart failure, unspecified
CPT/HCPCS: 36415; 36430; 51702; 71045; 74177; 80053; 81003; 83605; 83690; 83735; 84484; 85014; 85018; 85025; 85610; 86850; 86900; 86920; 93005; 96361; 96374; 96375; 96376; 99285; C9113; J1200; J2060; J2930; J3490; J7040; P9016; Q9967

== ENCOUNTER → 2022-12-17 13:10 | Outpatient (BNVA) | payer MEDICARE, MEDICAID, SELFPAY | PROVIDERS: PCP Family Medicine; Visit Provider Internal Medicine Cardiovascular Disease | DX: R06.02 Shortness of breath (principal); I10 Essential (primary) hypertension; R55 Syncope and collapse; I11.0 Hypertensive heart disease with heart failure; I50.32 Chronic diastolic (congestive) heart failure; I27.20 Pulmonary hypertension, unspecified; K92.2 Gastrointestinal hemorrhage, unspecified; E03.9 Hypothyroidism, unspecified; R00.1 Bradycardia, unspecified; M79.89 Other specified soft tissue disorders | CPT/HCPCS: 36415; 80048; 83880; 93242; 99214 ==

== ENCOUNTER → 2023-01-17 14:04 | Outpatient (BNVA) | payer MEDICARE, MEDICAID, SELFPAY | PROVIDERS: PCP Family Medicine; Visit Provider Internal Medicine Cardiovascular Disease | DX: R00.1 Bradycardia, unspecified (principal); I48.91 Unspecified atrial fibrillation; I11.0 Hypertensive heart disease with heart failure; I50.32 Chronic diastolic (congestive) heart failure; E03.9 Hypothyroidism, unspecified; Z79.01 Long term (current) use of anticoagulants | CPT/HCPCS: 99214 ==

== ENCOUNTER → 2023-01-31 08:45 | Outpatient (BNVA) | payer MEDICARE, MEDICAID, SELFPAY | PROVIDERS: PCP Family Medicine; Visit Provider Thoracic Surgery (Cardiothoracic Vascular Surgery) | DX: R00.1 Bradycardia, unspecified (principal); M79.89 Other specified soft tissue disorders | CPT/HCPCS: 99203 ==

== ENCOUNTER 2023-02-06 11:33 | Outpatient (CLI) | payer MEDICARE, MEDICAID, SELFPAY ==
--- NOTE | 2023-02-06 12:15 | USCV_ITS ---
Janine uLther Age: 78 Gender: M : 1945 Exam Date: 02/06/2023 12:34 Ordering Phys: Javy Garcia MD (Andy) ([email or web address]) Technologist: Jessie Berrios Exam Location: [facility] [place] Indication: bilateral leg swelling, history of vein stripping in [facility] PROCEDURES: Venous duplex imaging was performed in bilateral lower extremities. The following venous structures were evaluated: common femoral vein, profunda vein, proximal portion of the greater saphenous vein, superficial femoral vein, and the popliteal vein. In addition, the posterior tibial and peroneal trunk were evaluated. FINDINGS: No evidence of DVT seen in any vessel visualized at this time. CONCLUSIONS No evidence of right lower extremity DVT. No evidence of left lower extremity DVT. Edward Luciano MD (Electronically Signed) Final Date: 06 Feb 2023 16:59 S
== END 2023-02-06 11:34 | disposition home or self-care (01) ==
LOC: RAD 11:34
PROVIDERS: PCP Family Medicine; Visit Provider Thoracic Surgery (Cardiothoracic Vascular Surgery)
DX: M79.89 Other specified soft tissue disorders (principal)
CPT/HCPCS: 93970

== ENCOUNTER 2023-04-16 06:15 | Day surgery (SDC) | payer MEDICARE, MEDICAID, SELFPAY ==
[2023-04-11 09:29] VITALS: BMI 36.6
--- NOTE | 2023-04-11 09:57 | ANES.PREANE2 ---
Pre-Anesthetic Assessment Height/Weight: Height 1.83 m Weight 122.47 kg Operation Date: 04/16/23 08:25 Proposed Procedures p Micra pacemaker 48980,I48.91(Not Applicable) - Javy Garcia MD Familial anesthetic complications: none Was Beta Antionette taken within 24 hours: N/A Was Clonidine taken within 24 hours: N/A Social No alcohol and No tobacco Exam alert, oriented x 3 and clear to auscultation bilaterally irregular, cynthia Airway Submandibular: within normal limits Cervical ROM: within normal limits Mallampati: Class II Dentition: chipped Comments: Comments: Very poor dentition Pulmonary Shortness of Breath Mod pulm HTN CV/HEM Atrial Fibrillation, Anemia, Hypertension and Peripheral Vascular Disease CONCLUSIONS ?Normal left ventricular size and systolic function, EF 70 %. ?Moderate left ventricular hypertrophy. No regional wall motion ?abnormalities. ?Biatrial enlargement, moderately dilated right atrium and mildly ?dilated left atrium ?Moderate pulmonary hypertension with an estimated pulmonary ?artery peak systolic pressure 53 mmHg. ?Mild mitral valve regurgitation. ?Trace to mild tricuspid valve regurgitation. ?There is no pericardial effusion. ?There are no intracardiac masses. ?Compared to the study from 12/23/2018, there is worsening of the ?pulmonary hypertension ?Dr Gene Del Rio MD FAC ?(Electronically Signed) ?Final Date:? ? ? 30 March 2022 Venous stasis ulcers Metabolic Hyperlipidemia, Morbid Obesity and Thyroid Disease [facility] [place] Osteoarthritis/DJD and Weakness Neuropsych Cerebrovascular Accident Anesthetic Plan ASA status: 3 Anesthesia: General Medications/Allergies Home Medications Medication Instructions Recorded Confirmed Last Taken Type terazosin 2 mg capsule 2 mg PO BEDTIME 07/26/21 04/11/23 04/11/23 History fluticasone propionate 50 2 spray intranasal DAILY PRN 01/24/22 04/11/23 04/11/23 History mcg/actuation nasal allergies spray,suspension apixaban 5 mg tablet (Eliquis) 5 mg PO BID #180 tabs 06/01/22 04/11/23 04/11/23 Rx atorvastatin 20 mg tablet 20 mg PO DAILY 07/25/22 04/11/23 04/11/23 History fluoxetine 10 mg capsule 10 mg PO DAILY 07/25/22 04/11/23 04/11/23 History furosemide 40 mg tablet 80 mg PO DAILY 07/25/22 04/11/23 04/11/23 History gabapentin 400 mg capsule 800 mg PO BEDTIME 07/25/22 04/11/23 04/11/23 History levothyroxine 75 mcg tablet 75 mcg PO DAILY 07/25/22 04/11/23 04/11/23 History probenecid-colchicine tablet 1 tab PO BID 07/25/22 04/11/23 04/11/23 History spironolactone 25 mg tablet 50 mg PO DAILY 07/25/22 04/11/23 04/11/23 History isosorbide mononitrate 60 mg 30 mg PO DAILY #45 tabs 12/31/22 04/11/23 04/11/23 Rx tablet,extended release 24 hr doxycycline hyclate 100 mg capsule 100 mg PO BID 01/17/23 04/11/23 04/11/23 History ferrous sulfate 325 mg (65 mg 325 mg PO DAILY 01/31/23 04/11/23 04/11/23 History iron) tablet potassium chloride 10 mEq 10 meq PO DAILY #540 caps 03/11/23 04/11/23 04/11/23 Rx capsule,extended release felodipine 10 mg tablet,extended 10 mg PO DAILY 04/11/23 04/11/23 04/11/23 History release 24 hr losartan 100 mg tablet 100 mg PO DAILY 04/11/23 04/11/23 04/11/23 History Allergies Allergy/AdvReac Type Severity Reaction Status Date / Time lisinopril Allergy Mild Unknown Verified 04/11/23 09:14 [facility] Anesthesia Medical History Atrial fibrillation CHF (congestive heart failure) Glaucoma Gout History of CVA (cerebrovascular accident) Hypertension Hypothyroidism Leg swelling Near syncope Osteoarthritis Surgical History Status post right foot surgery Family History Brother CAD (coronary artery disease) Cancer Chronic kidney disease (CKD) Suicide Mother Diabetes Father Lung disease Other Hypertension Denies family history of Clotting disorder Dementia Anesthesia complication Bleeding disorder Stroke Social History Smoking and tobacco status: never smoked Alcohol intake: current Alcohol intake frequency: 3 or more drinks per day Alcohol type: beer Substance/Drug Use: never Lives independently: Yes Household members: spouse Marital status: Data Anesthesia Cardiac Studies: Echocardiogram 03/29/22 Cardiac Event Monitor 09/22/20 Holter Monitor 12/17/22
[2023-04-16] VITALS (21 sets, daily range): BP systolic 120–168; BP diastolic 58–81; PULSE 51–66; RESP 10–22; TEMP 36.1–36.8; O2SAT 90–99
--- NOTE | 2023-04-16 06:20 | SC_ITS ---
WS: [id number] EXAMINATION: C-arm FL for Pacemaker ORDER DATE: 04/16/2023 6:20 AM REASON FOR EXAM: pacemaker implantation COMPARISON: None available. FLUOROSCOPY TIME: 704 seconds # OF SPOT FILMS: 1 FINDINGS: Subcutaneous small chest wall wireless cardiac device overlying the left heart. SC/C-arm FL for Pacemaker IMPRESSION: Implantation of chest wall wireless cardiac device.
[2023-04-16] MEDS: sodium chloride 0.9% 1,000 ML 30 ML IV (06:48)
[2023-04-16 06:50] LABS: Basophils % 0.8 %; Eosinophils # 0.3 10^3/uL (0.0-0.8); Eosinophils % 5.7 %; Hematocrit 42.9 % (42.0-52.0); Hemoglobin 13.7 g/dL (11.7-16.6); Lymphocytes # 1.2 10^3/uL (0.8-4.8); Lymphocytes % 22.8 %; Mean Corpuscular HGB Conc 31.9 g/dL (30.0-36.0); Mean Corpuscular Hemoglobin 29.1 pg (28.0-34.0); Mean Corpuscular Volume 91.1 fl (80-94); Mean Platelet Volume 11.9 fL (7.4-10.4); Monocytes # 0.5 10^3/uL (0.2-0.9); Monocytes % 9.2 %; Neutrophils % 61.1 %; Nucleated Red Blood Cells % 0 %; Platelet Count 143 10^3/cmm (130-400); Red Blood Count 4.71 10^6/uL (4.1-5.3); White Blood Count 5.2 10^3/uL (4.0-10.0)
[2023-04-16 07:07] LABS: INR 1.18 (0.8-1.2)
[2023-04-16 07:16] LABS: Anion Gap 17.4 (5-19); Blood Urea Nitrogen 15 mg/dL (8-23); Calcium 9.6 mg/dL (8.5-10.5); Carbon Dioxide 22 mmol/L (22-29); Chloride 103 mmol/L (98-107); Glucose 115 mg/dL (65-115); Osmolality Calculated 288 mOsm/kg (285-295); Potassium 4.4 mmol/L (3.5-5.1); Sodium 138 mmol/L (136-145)
--- NOTE | 2023-04-16 07:16 | P.ANESUD_ITS ---
Pre-Anesthetic Update Pre-Anesthetic Assessment: Date of Surgery/Procedure: 04/16/23 Preop Perla gnosis: atrial fibrillation/symptomatic bradycardia Proposed Procedure: Operation Date: 04/16/23 08:25 Proposed Procedures p Micra pacemaker 10710,I48.91(Not Applicable) - Javy Garcia MD Any changes to Pre-Anesthetic Assessment?: No Last Intake: Intake Last Liquid Date 04/15/23 Last Liquid Time 23:30 Last Solid Date 04/15/23 Last Solid Time 18:00 Labs Last 48hrs: Short CBC 04/16/23 Range/Units 06:41 WBC 5.2 (4.0-10.0) 10^3/ uL Hgb 13.7 (11.7-16.6) g/dL Hct 42.9 (42.0-52.0) % MCV 91.1 (80-94) fl Plt Count 143 (130-400) 10^3/c mm Neut % (Auto) 61.1 % Neut # (Auto) 3.20 (1.8-7.7) 10^3/u L Coags 04/16/23 06:41 PT 15.40 H INR 1.18 Vitals: Temperature 97.1 F L 04/16/23 06:31 Temperature Source Temporal Artery S can 04/16/23 06:31 Pulse Rate 64 04/16/23 06:31 Pulse Rhythm Regular 04/16/23 06:28 Pulse Strength 3+ Normal 04/16/23 06:28 Respiratory Rate 22 H 04/16/23 06:31 Blood Pressure 168/81 04/16/23 06:31 Blood Pressure Mckenna n 110 04/16/23 06:31 Pulse Oximetry 97 04/16/23 06:31 Oxygen Delivery Me thod Room Air 04/16/23 06:31 Exam: Pre-Anes Outpt Exam: alert, oriented x 3, clear to auscultation bilaterally and regular rate & rhythm Cardiac Studies: Echocardiogram 03/29/22 Cardiac Event Monitor 09/22/20 Holter Monitor 12/17/22
--- NOTE | 2023-04-16 09:00 | P.HP_ITS ---
Providers/Chief Complaint Admitting Physician: Dr. Garcia/cardiothoracic surgery Primary Care Provider: Nino Mcgarry Chief Complaint: Atrial fibrillation with symptomatic bradycardia History of Present Illness Janine Luther is a 78 year old male who I saw originally as an outpatient consult on January [address] Del Rio for consideration of leadless pacemaker implantation due to atrial fibrillation which is chronic with highly symptomatic bradycardia. Holter monitoring has previously documented average heart rate of 46 bpm with a low of 34 and a maximum high of 80. There were 2 documented episodes of pauses of more than 3 seconds with the longest being 3.37 seconds. He does have some presyncopal episodes though no lindsey syncope. He has easy fatigability and dyspnea with only modest exertion. He has a long history of what appears to be venous stasis disease of the lower extremities with associated cellulitis and ulcerations which have been previously treated by [facility] wound care services. Because of this reason, Dr. Del Rio felt patient would benefit from a leadless system to decrease infection risk. Mr. Luther does maintain chronic swelling of the lower extremities right greater than left and had a previous very traumatic near complete avulsion of his right foot requiring a 9-month convalescent. He frequently uses a wheelchair due to substantial exercise induced dyspnea. He has had longstanding atrial fibrillation and is previously been on Eliquis. This has been discontinued in preparation for planned surgery. He presents today with his and family. All are eager for pacemaker implantation. Review of Systems Const: Reports: fatigue; Denies: fever(s), chills or change in weight Eyes: Denies: change in vision or blurry vision ENMT: Denies: throat pain or hoarseness Card: Reports: palpitations, irregular heart rhythm, edema, swelling of feet/ankles, pre-syncope, dyspnea on exertion and orthopnea; Denies: chest pain or syncope Resp: Reports: dyspnea; Denies: productive cough, non-productive cough or hemoptysis GI: Denies: abdominal pain, nausea or vomiting Musc: Reports: extremity swelling; Denies: neck pain or back pain Skin/Breast: Reports: other (Bilateral lower extremity edema with chronic venous stasis changes.) Neuro: Reports: weakness in extremities; Denies: headache(s) or numbness in extremities Psych: Denies: anxiety or depression Farzad/Lymph: Reports: easy bruising and easy bleeding Medications/Allergies Home Medications Medication Instructions Recorded Confirmed Last Taken Type terazosin 2 mg capsule 2 mg PO BEDTIME 07/26/21 04/11/23 04/11/23 History fluticasone propionate 50 2 spray intranasal DAILY PRN 01/24/22 04/11/23 04/11/23 History mcg/actuation nasal allergies spray,suspension apixaban 5 mg tablet (Eliquis) 5 mg PO BID #180 tabs 06/01/22 04/11/23 04/11/23 Rx atorvastatin 20 mg tablet 20 mg PO DAILY 07/25/22 04/11/23 04/11/23 History fluoxetine 10 mg capsule 10 mg PO DAILY 07/25/22 04/11/23 04/11/23 History furosemide 40 mg tablet 80 mg PO DAILY 07/25/22 04/11/23 04/11/23 History gabapentin 400 mg capsule 800 mg PO BEDTIME 07/25/22 04/11/23 04/11/23 History levothyroxine 75 mcg tablet 75 mcg PO DAILY 07/25/22 04/11/23 04/11/23 History probenecid-colchicine tablet 1 tab PO BID 07/25/22 04/11/23 04/11/23 History spironolactone 25 mg tablet 50 mg PO DAILY 07/25/22 04/11/23 04/11/23 History isosorbide mononitrate 60 mg 30 mg PO DAILY #45 tabs 12/31/22 04/11/23 04/11/23 Rx tablet,extended release 24 hr doxycycline hyclate 100 mg capsule 100 mg PO BID 01/17/23 04/11/23 04/11/23 History ferrous sulfate 325 mg (65 mg 325 mg PO DAILY 01/31/23 04/11/23 04/11/23 History iron) tablet potassium chloride 10 mEq 10 meq PO DAILY #540 caps 03/11/23 04/11/23 04/11/23 Rx capsule,extended release felodipine 10 mg tablet,extended 10 mg PO DAILY 04/11/23 04/11/23 04/11/23 History release 24 hr losartan 100 mg tablet 100 mg PO DAILY 04/11/23 04/11/23 04/11/23 History sulfamethoxazole 800 1 tab PO BID #12 tabs 04/11/23 04/16/23 04:00 Rx mg-trimethoprim 160 mg tablet (Bactrim DS) Allergies Allergy/AdvReac Type Severity Reaction Status Date / Time lisinopril Allergy Mild Unknown Verified 04/11/23 09:14 PFSH Acute PFSH: Medical History Atrial fibrillation CHF (congestive heart failure) Glaucoma Gout History of CVA (cerebrovascular accident) Hypertension Hypothyroidism Leg swelling Near syncope Osteoarthritis Surgical History Status post right foot surgery Family History Brother CAD (coronary artery disease) Cancer Chronic kidney disease (CKD) Suicide Mother Diabetes Father Lung disease Other Hypertension Denies family history of Clotting disorder Dementia Anesthesia complication Bleeding disorder Stroke Social History Smoking and tobacco status: never smoked Alcohol intake: current Alcohol intake frequency: 3 or more drinks per day Alcohol type: beer Substance/Drug Use: never Lives independently: Yes Household members: spouse Marital status: Vitals/I&O/Wt Last Vital Signs Temp 97.1 F L 04/16/23 06:31 Pulse 64 04/16/23 06:31 Resp 22 H 04/16/23 06:31 BP 168/81 04/16/23 06:31 Pulse Ox 97 04/16/23 06:31 O2 Del Method Room Air 04/16/23 06:31 Physical Exam Const: COMMON NORMALS: no acute distress and patient oriented x3; negative for average body habitus (Obese) HENMT: COMMON NORMALS: normocephalic, atraumatic, hearing grossly normal bilaterally, external ears normal and Normal external nose present Eye: COMMON NORMALS: EOMs intact bilaterally and no scleral icterus Neck/C-Spine: COMMON NORMALS: no lymphadenopathy and No carotid bruits; negative for full ROM Chest: COMMONS NORMALS: normal palpation of entire chest wall Resp: COMMON NORMALS: normal respiratory effort, No retractions and clear to auscultation bilaterally Cardio: RATE: bradycardic RHYTHM: abnormal rhythm irregularly irregular HEART SOUNDS: S1 normal heart sound present and no murmurs GI: COMMON NORMALS: Normal to inspection, nondistended, normoactive bowel sounds present INSPECTION: Yes central obesity Extremity: NARRATIVE EXTREMITY EXAM: Chronic venous stasis changes with discolorations. Eschar over pretibial region of the left lower extremity without erythema or drainage. 2+ pretibial edema bilaterally. Neuro: COMMON NORMALS: patient oriented x3, moves all extremities, no focal motor deficits and no sensory deficits noted Psych: COMMON NORMALS: mental status grossly normal, Normal thought process present, cooperative and normal affect Data 04/16/23 06:41 04/16/23 06:41 A&P Assessment and plan (1) Symptomatic bradycardia: Mr. Luther is a pleasant 78-year-old gentleman with chronic atrial fibrillation and highly symptomatic bradycardia that has been refractory to medical management. He has chronic venous stasis changes to the lower extremities with intermittent cellulitis and active ulcerations. Dr. Del Rio feels he would benefit from consideration for leadless pacemaker implantation to reduce his infection risk. Details and risk of leadless pacemaker implantation were very frankly Discussed with Mr. Luther during his prior visit with us back in January and again today with and family present. I discussed specifically concerning implantation of this device the risks of infection, major bleeding, particularly catastrophic bleeding in relation to device implantation with this technique for leadless pacemaker, catastrophic bleeding may be associated with major vascular or cardiac perforation, migration of the pacemaker requiring further revision or recovery and redeployment, need for long-term follow-up, and pain at insertion site. They all stated they were aware of these risks from our previous conversation during his clinic visit with us On January 31. They wish to proceed. Attestations Medical Necessity Statement*: Highly symptomatic bradycardia associated with chronic atrial fibrillation Coding Level of Care Code Acute Code for [facility] Diagnoses Symptomatic bradycardia R00.1
--- NOTE | 2023-04-16 09:00 | PC.NURSE ---
Report given to OR nurse Josias Soler RN. Pt's bilateral edema of feet and wound on right front leg shown to Josias and Scd placement discussed. scd's sleeves not on pt at this time, Josias stated the decision to place them on will be made when pt goes to OR.
[2023-04-16] MEDS: ceFAZolin 2,000 MG in sodium chloride 0.9% (plus) 50 ML 100 MG IV (10:00)
[2023-04-16] MEDS: lidocaine 1% INJ 10 mL (per mL) 20 ML XX (10:22)
[2023-04-16] MEDS: heparin 5,000 unit/mL INJ 1 mL 2000 UNIT INJECTION (10:40)
[2023-04-16] MEDS: iohexol 300 mg/mL 50 mL Btl 200 ML IV (11:18)
--- NOTE | 2023-04-16 12:40 | P.OP_ITS ---
Operative Report Date of procedure: April 16, 2023 Pre-op diagnosis: Preop Diagnosis atrial fibrillation/symptomatic bradycardia Post-op diagnosis: same Procedure done: Wireless Micra Medtronic pacemaker implantation Pathology: none sent Surgeon: Javy Garcia Anesthesia: General Complications: None Condition: stable Disposition: PACU Brief History: Mr. Luther is a 78-year-old gentleman with chronic atrial fibrillation and has developed symptomatic, medically refractory bradycardia. He also has substantial venous insufficiency of the lower extremities which are chronically edematous with hyperemia, intermittent cellulitis, and venous ulcers. Secondary to this, Dr. Del Rio felt he would be best benefited with leadless pacemaker implantation. Rationale for this was carefully discussed with Mr. Luther and family. Details of risk of the procedure were carefully reviewed. Appropriate consents have been reviewed and signed. Procedure: Micra AV model number: [id number] Serial number: [id number] RV sensin.1 Impedance: 590 Threshold: 3.1 Mr. Luther was taken to the operating room theater carefully position where he underwent IV conscious sedation with anesthesia monitoring. His entire lower abdomen and groin region down to the knees was sterilely prepped and draped. 1% lidocaine was infiltrated in the right groin after and ultrasound visualization of the right femoral vein. The right femoral vein was entered under ultrasound guidance and a guidewire was placed. After confirmation of guidewire placement, an 8 Kittitian sheath was then positioned under fluoroscopic guidance. Guidewire was then replaced with an Amplatz superstiff 0.035 x 180 cm wire. An 11 scalpel blade was utilized to incise the skin. A [id number] silk suture was then placed. 8 Kittitian sheath was then removed and replaced with a 23 Kittitian delivery sheath. This was positioned at mid right atrial level. Following this, after careful flushing of all components with heparinized saline, and at the time of the delivery of the 23 Kittitian sheath, the patient received 5000 units of heparin intravenously. Next, Micra AV pacemaker and its delivery catheter, was passed under fluoroscopic guidance to the end of the 23 Kittitian sheath. The sheath was then withdrawn back inferior to the right atrium. The Micra AV pacemaker and delivery catheter then positioned under fluoroscopic guidance across the tricuspid valve and then directed to mid septal level. Proximity with the septum was then confirmed utilizing dilute Omnipaque contrast and a series of KU and JORDAN views. Pacemaker was delivered and then tension testing was performed with cine fluoroscopy performed to assess for nathanael fixation. Following confirmation of fixation, electrical interrogation was then performed. 3 passes and positioning were required to receive acceptable paramet ers. This did require a larger than normal dye load for septal proximity interrogation with each pass. Next, after fixation, retaining string was transected and removed followed by removal of the delivery catheter. Re-interrogation again revealed appropriate parameters. Next, the 23 Kittitian sheath was removed with the [id number] suture being tied followed by direct pressure being held over the right groin for over 15 minutes and then pressure dressing being applied followed by a sandbag. Garcia catheter was placed after the procedure. He will continue to receive hydration postprocedure. We will also resume his diuretic. Mr. Luther tolerated procedure well, was awakened from conscious sedation and then transferred to the PACU. Family was counseled at the completion of the procedure.
--- NOTE | 2023-04-16 12:46 | PC.NURSE ---
No bleeding from procedure site. 3-4+ pedal edema. PPP bilaterally. Ulcer noted on left lower leg. Dr. Garcia @ bedside. Verbal order for lasix received.
[2023-04-16] MEDS: FUROsemide 10 mg/mL SDV 2mL 20 MG IVP (13:03)
--- NOTE | 2023-04-16 13:21 | PC.NURSE ---
Report given to Floor nurse. Patient alert and oriented.
--- NOTE | 2023-04-16 13:52 | ANE.PACU2 ---
Inpatient post-anesthesia follow up: Airway intact: Yes Vital signs: Temperature 97.4 F Pulse Rate 55 Respiratory Rate 14 Blood Pressure 141/69 Pulse Oximetry 90 Oxygen Delivery Me thod Room Air Oxygen Flow Rate 8 Fraction of Inspir ed Oxygen Hydration adequate: Yes Nausea and vomiting: No Pain level: 1 Mental status: Baseline
[2023-04-16] MEDS: doxycycline 100 mg Tablet PO (18:16)
[2023-04-16] MEDS: gabapentin 400 mg Capsule 800 MG PO (20:50)
[2023-04-16] MEDS: lactated ringers 1,000 ML 100 ML IV (20:50)
--- NOTE | 2023-04-16 23:48 | PC.NURSE ---
Bilateral pedal pulses faint and unable to palpate. Venous doppler used and pulses found. Pulses marked
--- NOTE | 2023-04-16 23:51 | PC.NURSE ---
Bilateral pedal pulses unpalpable. Pulse present via doppler.
[2023-04-17 04:00] VITALS: BP 121/75; PULSE 56; RESP 17; TEMP 36.4; O2SAT 96
[2023-04-17 06:00] VITALS: PULSE 51
--- NOTE | 2023-04-17 06:00 | XRR_ITS ---
PROCEDURE INFORMATION: Exam: XR Chest Exam date and time: 04/17/2023 5:54 AM Age: 78 years old Clinical indication: Device placement; Cardiac pacemaker placement or adjustment; Prior surgery; Surgery date: Post-operative (0-2 days); Surgery type: Wireless pacemaker; Additional info: S/P leadless pacemaker implantation TECHNIQUE: Imaging protocol: Radiologic exam of the chest. Views: 1 view. COMPARISON: CR (CHEST, ) 10/26/2022 6:51 PM FINDINGS: Lungs: Right lower lobe infiltrate Pleural spaces: Unremarkable. No pleural effusion. No pneumothorax. Heart/Mediastinum: Cardiomegaly. Bones/joints: Unremarkable. XR/XR chest 1V portable [id number] IMPRESSION: Cardiomegaly with right lower lobe infiltrate
[2023-04-17] MEDS: lactated ringers 1,000 ML 100 ML IV (06:49)
[2023-04-17 07:13] LABS: Basophils % 0.3 %; Eosinophils % 0.3 %; Hematocrit 40.7 % (42.0-52.0); Hemoglobin 12.8 g/dL (11.7-16.6); Lymphocytes # 0.8 10^3/uL (0.8-4.8); Lymphocytes % 10.8 %; Mean Corpuscular HGB Conc 31.4 g/dL (30.0-36.0); Mean Corpuscular Hemoglobin 29.4 pg (28.0-34.0); Mean Corpuscular Volume 93.6 fl (80-94); Mean Platelet Volume 12.1 fL (7.4-10.4); Monocytes # 0.6 10^3/uL (0.2-0.9); Monocytes % 7.8 %; Neutrophils # 6.13 10^3/uL (1.8-7.7); Neutrophils % 80.4 %; Nucleated Red Blood Cells % 0 %; Platelet Count 137 10^3/cmm (130-400); Red Blood Count 4.35 10^6/uL (4.1-5.3); Red Cell Distribution Width 14.9 % (12.1-15.1); White Blood Count 7.6 10^3/uL (4.0-10.0)
[2023-04-17 07:31] LABS: Anion Gap 12.9 (5-19); Blood Urea Nitrogen 15 mg/dL (8-23); Calcium 8.8 mg/dL (8.5-10.5); Carbon Dioxide 26 mmol/L (22-29); Chloride 100 mmol/L (98-107); Glucose 92 mg/dL (65-115); Osmolality Calculated 278 mOsm/kg (285-295); Potassium 4.9 mmol/L (3.5-5.1); Sodium 134 mmol/L (136-145)
--- NOTE | 2023-04-17 08:09 | P.DS_ITS ---
Discharge Providers Date of Admission: 04/16/23 12:22 Date of Discharge: April 17, 2023 Attending Provider at Admission: Javy Garcia MD Attending Provider at Discharge: Javy Garcia MD Primary Care Provider: Nino Mcgarry Diagnoses at Discharge Discharge Diagnosis (1) Symptomatic bradycardia: Status: Acute Reason for Visit Reason for Visit: Atrial fibrillation with symptomatic bradycardia Brief History: Mr. Luther is a 78-year-old gentleman with chronic atrial fibrillation and progressive highly symptomatic bradycardia which has been refractory to medical management. He has a history of recurrent to lower extremity cellulitis and lymphedema. Leadless pacemaker implantation been recommended to reduce potential for surgical infection risk. Details, risk, and rationale were carefully discussed with Mr. Luther and family. They were all in agreement. Hospital Course Hospital Course Mr. Luther is likely admitted and underwent Medtronic Micra leadless pacemaker implantation on April 16, 2023. Postoperatively, he convalesced on the medical surgical radnle where he has done well. Insertion site in the right groin is clean and dry without evidence for hematoma. Pacemaker interrogation is satisfactory. He continues to do well. He will be discharged home today in stable condition for scheduled follow-up in [facility] pacemaker clinic in 1 week. Physical Exam Resp: COMMON NORMALS: normal respiratory effort and clear to auscultation bilaterally AUSCULTATION: clear to auscultation bilaterally Cardio: COMMON NORMALS: regular rate and S1 normal heart sound present RATE: regular rate HEART SOUNDS: S1 normal heart sound present OTHER: Paced rhythm approximately 50% Extremity: NARRATIVE EXTREMITY EXAM: Maintains chronic 2+ lower extremity edema with eschar over the pretibial region of the left lower extremity. Urinary Catheter Management: Garcia: Cath Placed During This Visit: yes Reason for Continuing Indwelling Catheter: Required Immobilization for Trauma or Surgery or Anesthesia Urinary Catheter Date of Insertion: 04/16/23 Urinary Catheter Time of Insertion: 13:38 Discharge Data Studies Completed and Pending Completed Studies During Hospitalization Category Date Time Status XR chest 1V portable [id number] Routine Exams 04/17/23 06:00 Completed Pending at discharge Category Date Time Status Leukocyte Reduced RBC Routine Lab 04/16/23 06:41 Results Type and Screen Routine Lab 04/16/23 06:20 Uncollected Type and Screen Routine Lab 04/16/23 06:41 Results Urinalysis Routine Lab 04/16/23 06:41 Ordered Radiology Impressions C-Arm Fluoroscopy 04/16/23 06:20 IMPRESSION: Implantation of chest wall wireless cardiac device. Chest X-Ray 04/17/23 06:00 IMPRESSION: Cardiomegaly with right lower lobe infiltrate Laboratory Results WBC 7.6 10^3/uL (4.0-10.0) 04/17/23 05:38 RBC 4.35 10^6/uL (4.1-5.3) 04/17/23 05:38 Hgb 12.8 g/dL (11.7-16.6) 04/17/23 05:38 Hct 40.7 % (42.0-52.0) L 04/17/23 05:38 MCV 93.6 fl (80-94) 04/17/23 05:38 MCH 29.4 pg (28.0-34.0) 04/17/23 05:38 MCHC 31.4 g/dL (30.0-36.0) 04/17/23 05:38 RDW 14.9 % (12.1-15.1) 04/17/23 05:38 Plt Count 137 10^3/cmm (130-400) 04/17/23 05:38 MPV 12.1 fL (7.4-10.4) H 04/17/23 05:38 Neut % (Auto) 80.4 % 04/17/23 05:38 Lymph % (Auto) 10.8 % 04/17/23 05:38 Knott % (Auto) 7.8 % 04/17/23 05:38 Eos % (Auto) 0.3 % 04/17/23 05:38 Baso % (Auto) 0.3 % 04/17/23 05:38 Neut # (Auto) 6.13 10^3/uL (1.8-7.7) 04/17/23 05:38 Lymph # (Auto) 0.8 10^3/uL (0.8-4.8) 04/17/23 05:38 Knott # (Auto) 0.6 10^3/uL (0.2-0.9) 04/17/23 05:38 Eos # (Auto) 0.0 10^3/uL (0.0-0.8) 04/17/23 05:38 Baso # (Auto) 0.0 10^3/uL (0.0-0.1) 04/17/23 05:38 Nucleated RBC % (auto) 0 % 04/17/23 05:38 Nucleated RBCs # 0.0 /100WBC 04/17/23 05:38 PT 15.40 SECONDS (12.1-14.9) H 04/16/23 06:41 INR 1.18 (0.8-1.2) 04/16/23 06:41 Sodium 134 mmol/L (136-145) L 04/17/23 05:38 Potassium 4.9 mmol/L (3.5-5.1) 04/17/23 05:38 Chloride 100 mmol/L (98-107) 04/17/23 05:38 Carbon Dioxide 26 mmol/L (22-29) 04/17/23 05:38 Anion Gap 12.9 (5-19) 04/17/23 05:38 BUN 15 mg/dL (8-23) 04/17/23 05:38 Creatinine 1.6 mg/dL (0.7-1.2) H 04/17/23 05:38 GFR Calculation Not Reportable 04/17/23 05:38 Glucose 92 mg/dL (65-115) 04/17/23 05:38 Calculated Osmolality 278 mOsm/kg (285-295) L 04/17/23 05:38 Calcium 8.8 mg/dL (8.5-10.5) 04/17/23 05:38 Blood Type A Positive 04/16/23 06:41 Rho(D) Type Positive 04/16/23 06:41 Antibody Screen Negative 04/16/23 06:41 Crossmatch See Detail 04/16/23 06:41 Vitals Last Vital Signs Temp 97.5 F L 04/17/23 04:00 Pulse 51 L 04/17/23 06:00 Resp 17 04/17/23 04:00 BP 121/75 04/17/23 04:00 Pulse Ox 96 04/17/23 04:00 O2 Del Method Nasal Cannula 04/17/23 04:00 O2 Flow Rate 2 04/17/23 04:00 Discharge Plan Discharge Patient Disposition: Home Condition: Stable Prescriptions: Continued probenecid-colchicine Tablet 1 tab PO BID terazosin 2 mg capsule 2 mg PO BEDTIME fluticasone propionate 50 mcg/actuation spray,suspension 2 spray intranasal DAILY PRN (Reason: allergies) doxycycline hyclate 100 mg capsule 100 mg PO BID atorvastatin 20 mg tablet 20 mg PO DAILY fluoxetine 10 mg capsule 10 mg PO DAILY furosemide 40 mg tablet 80 mg PO DAILY gabapentin 400 mg capsule 800 mg PO BEDTIME levothyroxine 75 mcg tablet 75 mcg PO DAILY spironolactone 25 mg tablet 50 mg PO DAILY ferrous sulfate 325 mg (65 mg iron) tablet 325 mg PO DAILY Eliquis 5 mg tablet 5 mg PO BID Qty: 180 3RF isosorbide mononitrate 60 mg tablet extended release 24 hr 30 mg PO DAILY Qty: 45 0RF potassium chloride 10 mEq capsule, extended release 10 meq PO DAILY Qty: 540 0RF sulfamethoxazole-trimethoprim [Bactrim DS] 800-160 mg tablet 1 tab PO BID Qty: 12 0RF felodipine 10 mg tablet extended release 24 hr 10 mg PO DAILY Rx Instructions: TAKE 1 TABLET BY MOUTH DAILY losartan 100 mg tablet 100 mg PO DAILY Rx Instructions: TAKE 1 TABLET BY MOUTH DAILY Discharge Orders: Discharge Order (Routine); Ordered 04/17/23 Ordered By: Javy Garcia Referrals: [facility] [Provider Group] - 1 week (pacemaker clinic) Discharge Diet: Usual diet Discharge Activity: Limit activity as instructed Patient Instructions: Syncope (ED), Bradycardia (DC), Near Syncope (DC), Pacemaker (DC), Opioid Safety, Post Pacemaker - Radha Activity Restrictions/Additional Instructions: May begin daily showers in 2 days. No swimming or tub baths x2 weeks No heavy straining or lifting x2 weeks Clean right groin area thoroughly and dry completely daily. May keep gauze or bandage over area to prevent moisture collection. Report increasing pain, redness, swelling, fever, or drainage. Discharge Attestations Time Spent in Discharge Care*: less than 30 min Specific Discharge Activities: educating patient, educating and/or supporting family/caregiver, discussing with rn case manager hospice/social workers/dc planners, documenting/other paperwork and evaluating patient/reviewing data Status at Discharge: Cognitive status at discharge: cognitively intact , Behavioral status at discharge: cooperative , Functional status at discharge: independent ambulation , Overall status at discharge: patient is back to baseline Quality Metrics Clinical Quality Measures [ No reported AMI, CVA or VTE this stay] Coding Level of Care Code Acute Code for [facility] Diagnoses Symptomatic bradycardia R00.1
--- NOTE | 2023-04-17 08:43 | PC.PHAR ---
pt and pts verified pts medications-pts states she is unsure on all of the pts medications pts states he takes too may medications to keep straight-eliquis 2.5mg bid filled 03/08/23 90d/s and picked up from pharmacy-5mg po bid also filled 01/12/23 90d/s -pts states she thinks the pt takes 2.5mg bid since it was filled most recently-pt states he takes a tab that is yellow and half of a pinkish color tab pt and pts unsure what it is tho-[facility] states eliquis 5mg is a kind of peach color and football shape and 2.5mg is a mustard yellow thats round-pt states he ran out of his levothyroxine 75mcg daily on saturday04/14/23 rx last filled 11/26/22 90d/s nicholas states rx has refills pts states had build up-pt states he takes probenecid-colchicine 2 tabs qam ext shows last filled 04/08/23 30d/s 1 tab bid-notes are made in the pharmacy comments-
[2023-04-17 09:12] VITALS: BP 121/75; PULSE 51; RESP 17; TEMP 36.4; O2SAT 96
--- NOTE | 2023-04-17 09:15 | PC.NURSE ---
pt has requested to take his medications when he gets home, discharge education reviewed with patient and family.
== END 2023-04-17 09:15 | disposition home or self-care (01) ==
LOC: OR 09:01 → MEDSURG 04-17 00:33
PROVIDERS: PCP Family Medicine; Visit Provider Thoracic Surgery (Cardiothoracic Vascular Surgery)
PROC: (CPT 33274; principal; 2023-04-16 08:15)
DX: I48.91 Unspecified atrial fibrillation (principal); R00.1 Bradycardia, unspecified; Z79.01 Long term (current) use of anticoagulants; R06.09 Other forms of dyspnea; E03.9 Hypothyroidism, unspecified; I11.0 Hypertensive heart disease with heart failure; I50.9 Heart failure, unspecified
CPT/HCPCS: 33274; 36415; 51702; 71045; 76000; 80048; 85025; 85610; 86850; 86900; 86920; C1786; C1894; J0690; J1100; J1644; J1940; J2405; J2704; J3010; J3490; J7030; J7120; Q9967

== ENCOUNTER → 2023-04-22 12:49 | Outpatient (BNVA) | payer MEDICARE, MEDICAID, SELFPAY | PROVIDERS: PCP Family Medicine; Visit Provider Nurse Practitioner Family | DX: Z95.0 Presence of cardiac pacemaker (principal) | CPT/HCPCS: 93288; 99213 ==

== ENCOUNTER → 2023-06-17 15:58 | Outpatient (BNVA) | payer MEDICARE, MEDICAID, SELFPAY | PROVIDERS: PCP Family Medicine; Visit Provider Internal Medicine Cardiovascular Disease | DX: R06.02 Shortness of breath (principal); R00.1 Bradycardia, unspecified; M79.89 Other specified soft tissue disorders; Z79.01 Long term (current) use of anticoagulants; N18.9 Chronic kidney disease, unspecified; I10 Essential (primary) hypertension | CPT/HCPCS: 36415; 80048; 83880; 84443; 85025; 99214 ==

== ENCOUNTER → 2023-10-16 12:50 | Outpatient (BNVA) | payer MEDICARE, MEDICAID, SELFPAY | PROVIDERS: PCP Family Medicine; Visit Provider Internal Medicine Cardiovascular Disease | DX: Z45.010 Encounter for checking and testing of cardiac pacemaker pulse generator [battery] (principal) | CPT/HCPCS: 93296 ==

== ENCOUNTER 2023-10-17 08:08 | Emergency (ER) | payer MEDICARE, MEDICAID, SELFPAY ==
[2023-10-17] VITALS (8 sets, daily range): BP systolic 138–165; BP diastolic 79–103; PULSE 74–85; RESP 16; TEMP 36.4; O2SAT 94–99; BMI 34.9
--- NOTE | 2023-10-17 08:27 | XR_ITS ---
WS: [id number] XR chest 1V portable [id number] REASON FOR EXAM: dyspnea FINDINGS: Moderate tortuosity and ectasia of the thoracic aorta. Cardiomegaly. Small wireless lunchroom monitor left chest wall. Calcified granulomas disease bilaterally. No acute pulmonary parenchymal or pleural abnormality is identified. Moderate degenerative spondylosis in the mid and lower thoracic spine with mild to moderate thoracic scoliosis convex right. IMPRESSION: No acute chest abnormality.
--- NOTE | 2023-10-17 08:28 | ECG_ITS ---
[facility] Test Date: 2023-10-17 Pat Name: Janine Luther Department: Room: Gender: Male Plan Manager: : 1945 Requested By: Reno Alvarez Order Number: [id number] Luis MD: Gene Del Rio M.D. Measurements Intervals [place] Rate: 81 P: 60 CT: 247 QRS: -66 QRSD: 156 T: 56 QT: 448 QTc: 523 Interpretive Statements ELECTRONIC VENTRICULAR PACEMAKER ABNORMAL RHYTHM ECG Compared to ECG 10/26/2022 21:54:01 Atrial fibrillation no longer present Ventricular premature complex(es) no longer present Aberrant conduction of supraventricular beat(s) no longer present Left anterior fascicular block no longer present Myocardial infarct finding no longer present Electronically Signed On 10-17-2023 21:48:00 PARALEGAL SECRETARY by Gene Del Rio M.D. [id number] [email or web address]
--- NOTE | 2023-10-17 08:39 | ED_ITS ---
HPI - Extremity Problem 2 General: Chief complaint: Extremity Problem,Nontraumatic Stated complaint: swelling, sob Time Seen by Provider: 10/17/23 08:18 Source: patient Mode of arrival: ambulatory History of Present Illness: 78-year-old male presents emergency room complaining of increasing swelling in his lower extremities. He has chronic edema has gotten worse last couple days extends now up his posterior thighs. He denies any chest pain no orthopnea. MD Complaint: extremity swelling Onset (ago): day(s) Location: left, right and lower extremity Relieving factors: nothing Exacerbating factors: other (Moderate orthopnea) Associated symptoms: Reports short of breath; Deny arthralgias, chest pain, fever(s), myalgias or rash Review of Systems 2 Const: Denies: fever(s) or chills Card: Reports: irregular heart rhythm, edema and swelling of feet/ankles; Denies: chest pain Resp: Denies: dyspnea GI: Denies: abdominal pain : Denies: dysuria, urinary frequency or urinary urgency Musc: Denies: neck pain or back pain Skin/Breast: Denies: rash PFSH ED 2 PFSH: Medical History Presence of leadless cardiac pacemaker History of CVA (cerebrovascular accident) Leg swelling Near syncope CHF (congestive heart failure) Atrial fibrillation Hypertension Osteoarthritis Gout Glaucoma Hypothyroidism Surgical History Status post right foot surgery Family History Brother CAD (coronary artery disease) Cancer Chronic kidney disease (CKD) Suicide Mother Diabetes Father Lung disease Other Hypertension Denies family history of Clotting disorder Dementia Anesthesia complication Bleeding disorder Stroke Social History Smoking and tobacco/nicotine status: never used tobacco/nicotine Alcohol intake: current Alcohol intake frequency: 3 or more drinks per day Alcohol type: beer Substance/Drug Use: never Lives independently: Yes Household members: spouse Marital status: Physical Exam 2 Const: GENERAL APPEARANCE: cooperative and comfortable O RIENTATION/CONSCIOUSNESS: Yes awake, Yes oriented to person, Yes oriented to place and Yes oriented to time HENMT: COMMON NORMALS: normocephalic, atraumatic and hearing grossly normal bilaterally HEAD & SCALP: normocephalic and atraumatic Resp: COMMON NORMALS: normal respiratory effort, No retractions, No use of accessory muscles and clear to auscultation bilaterally AUSCULTATION: clear to auscultation bilaterally Cardio: COMMON NORMALS: regular rate, regular rhythm and No murmurs present (Cardio) RATE: regular rate RHYTHM: regular rhythm GI: COMMON NORMALS: Soft to palpation and No hepatosplenomegaly present A USCULTATION: Yes normoactive bowel sounds PALPATION: Yes Soft to palpation, No Tenderness to palpation present (GI), No Guarding due to palpation present (GI) and Yes No hepatosplenomegaly present Extremity: COMMON NORMALS: normal to inspection and no calf tenderness G ENERAL: Yes edema (to the level of the knees and posterior to the level of the gluteal fold) OTHER: Mild redness with chronic venous stasis changes of the distal third of the lower legs. No presacral edema Neuro: SENSORIUM/ORIENTATION: Yes oriented to person, Yes oriented to place and Yes oriented to time Skin: COMMON NORMALS: no rashes or lesions noted GENERAL SKIN EXAM: no rashes or lesions noted Course 2 Vital Signs: Vital signs: Vital Signs Temperature 97.5 F L 10/17/23 08:17 Pulse Rate 78 10/17/23 11:38 Respiratory Rate 16 10/17/23 08:17 Blood Pressure 152/87 10/17/23 11:38 Pulse Oximetry 95 10/17/23 11:38 Oxygen Delivery Me thod Room Air 10/17/23 11:38 MDM - Extremity (Nontraumatic) Medical Decision Making White count normal no left shift. Does have some redness and erythema lower extremities we will start him on doxycycline. Stop felodipine as it may actually increase swelling admit to metolazone 5 mg half hour prior to the Lasix. Should be checked up with his doctor within the next week. Will also make referral through case management to wound care clinic. At this point he has no decompensated heart failure does not require hospital admission. Medical Records I reviewed the patient's medical records. Lab Data I reviewed the patient's lab results. 10/17/23 08:40 10/17/23 08:40 Laboratory Results WBC 5.30 10^3/uL (3.29-11.43) 10/17/23 08:40 RBC 4.56 10^6/uL (3.85-5.65) 10/17/23 08:40 Hgb 14.50 g/dL (11.27-16.99) 10/17/23 08:40 Hct 44.0 % (37-53) 10/17/23 08:40 MCV 96.5 fl (82-101) 10/17/23 08:40 MCH 31.8 pg (27-33) 10/17/23 08:40 MCHC 33.0 g/dL (30-55) 10/17/23 08:40 RDW 12.5 % (12.1-15.1) 10/17/23 08:40 Plt Count 163 10^3/cmm (157-399) 10/17/23 08:40 MPV 9.9 fL (7.4-10.4) 10/17/23 08:40 Neut % (Auto) 65.5 % 10/17/23 08:40 Lymph % (Auto) 16.8 % 10/17/23 08:40 Nobles % (Auto) 9.4 % 10/17/23 08:40 Eos % (Auto) 6.6 % 10/17/23 08:40 Baso % (Auto) 1.1 % 10/17/23 08:40 Neut # (Auto) 3.47 10^3/uL (1.8-7.7) 10/17/23 08:40 Lymph # (Auto) 0.9 10^3/uL (0.8-4.8) 10/17/23 08:40 Nobles # (Auto) 0.5 10^3/uL (0.2-0.9) 10/17/23 08:40 Eos # (Auto) 0.4 10^3/uL (0.0-0.8) 10/17/23 08:40 Baso # (Auto) 0.1 10^3/uL (0.0-0.1) 10/17/23 08:40 Nucleated RBC % (auto) 0 % 10/17/23 08:40 Nucleated RBCs # 0.0 /100WBC 10/17/23 08:40 Sodium 142 mmol/L (136-145) 10/17/23 08:40 Potassium 4.4 mmol/L (3.5-5.1) 10/17/23 08:40 Chloride 105 mmol/L (98-107) 10/17/23 08:40 Carbon Dioxide 27 mmol/L (22-29) 10/17/23 08:40 Anion Gap 14.4 (5-19) 10/17/23 08:40 BUN 12 mg/dL (8-23) 10/17/23 08:40 Creatinine 1.1 mg/dL (0.7-1.2) 10/17/23 08:40 GFR Calculation Not Reportable 10/17/23 08:40 Glucose 173 mg/dL (65-115) H 10/17/23 08:40 Calculated Osmolality 298 mOsm/kg (285-295) H 10/17/23 08:40 Calcium 9.2 mg/dL (8.5-10.5) 10/17/23 08:40 Total Bilirubin 0.5 mg/dL (0.15-1.2) 10/17/23 08:40 AST 14 U/L (0-40) 10/17/23 08:40 ALT 11 U/L (0-41) 10/17/23 08:40 Alkaline Phosphatase 104 U/L (40-130) 10/17/23 08:40 NT-Pro-B Natriuret Pep 2424 pg/mL (0-450) H 10/17/23 08:40 Total Protein 7.0 g/dL (6.6-8.7) 10/17/23 08:40 Albumin 3.6 g/dL (3.5-5.2) 10/17/23 08:40 Globulin 3.4 g/dL (1.3-4.6) 10/17/23 08:40 All radiology interpretation(s) finalized by discharge Discharge Plan Discharge Patient Disposition: Home Clinical Impression: Leg swelling, Non-healing ulcer, Atrial fibrillation, Cellulitis Condition: Stable Prescriptions: New metolazone 5 mg tablet 5 mg PO DAILY Qty: 10 0RF Rx Instructions: Take 1/2-hour prior to Lasix doxycycline hyclate 100 mg capsule 100 mg PO BID 10 Days Qty: 20 0RF Toprol XL 25 mg tablet extended release 24 hr 25 mg PO DAILY Qty: 30 0RF Discontinued felodipine 10 mg tablet extended release 24 hr 10 mg PO DAILY No Action terazosin 2 mg capsule 2 mg PO BEDTIME fluticasone propionate 50 mcg/actuation spray,suspension 2 spray intranasal DAILY PRN (Reason: Allergy Symptoms) atorvastatin 20 mg tablet 20 mg PO QAM furosemide 40 mg tablet 80 mg PO QAM ferrous sulfate 325 mg (65 mg iron) tablet 325 mg PO QAM potassium chloride 10 mEq capsule, extended release 10 meq PO DAILY Qty: 540 0RF Eliquis 2.5 mg tablet 2.5 mg PO BID Qty: 180 3RF isosorbide mononitrate 30 mg tablet extended release 24 hr 30 mg PO QAM Qty: 90 2RF losartan 100 mg tablet 100 mg PO QAM probenecid-colchicine 500-0.5 mg tablet 2 tab PO QAM acetaminophen [Tylenol Ex Str Rapid Release] 500 mg Tablet 1,000 mg PO Q6H PRN (Reason: Pain) spironolactone 50 mg tablet 50 mg PO QAM Systane (PF) 0.4-0.3 % Dropperette 3 drp ophthalmic (eye) EVERY OTHER DAY Rx Instructions: right eye gabapentin 600 mg tablet See Rx Instructions .ROUTE .COMPLEX Rx Instructions: TAKE 1 TABLET BY MOUTH IN THE MORNING AND 2 TABLETS AT BEDTIME. levothyroxine 100 mcg tablet 100 mcg PO QAM fluoxetine 20 mg capsule 20 mg PO DAILY baclofen 5 mg tablet 5 mg PO DAILY Discharge Orders: Discharge ED (Routine); Ordered 10/17/23 Ordered By: Reno Osullivan Referrals: Nino Mcgarry [Primary Care Provider] - Discharge Diet: Low Salt Discharge Activity: Resume usual activity Patient Instructions: Opioid Safety, Pain Management Activity Restrictions/Additional Instructions: Thank you for choosing [facility] for your healthcare needs today. Please realize this is an emergency room and that we are providing you with a medical screening exam and this may not be complete and all inclusive of all the testing and or work up that you may need to determine your ailment or severity of your illness. It is very important that you follow up as instructed or that you return to the Emergency Department should you have concerns or if your condition changes or worsens in any way. Recommend you stop the flow to the pain as that can increase leg swelling. Add metolazone 5 mg 1/2-hour prior to taking your Lasix daily. Also start doxycycline 100 mg twice a day for 10 days. You should follow-up with your doctor within the next 5 to 7 days. Case management make arrangements for you to follow-up with wound care clinic. Coding Level of Care Code ED Guest Relations Agent for Lucas Graham
[2023-10-17 08:46] LABS: Basophils # 0.1 10^3/uL (0.0-0.1); Basophils % 1.1 %; Eosinophils # 0.4 10^3/uL (0.0-0.8); Eosinophils % 6.6 %; Lymphocytes # 0.9 10^3/uL (0.8-4.8); Lymphocytes % 16.8 %; Mean Corpuscular Hemoglobin 31.8 pg (27-33); Mean Corpuscular Volume 96.5 fl (82-101); Mean Platelet Volume 9.9 fL (7.4-10.4); Monocytes # 0.5 10^3/uL (0.2-0.9); Monocytes % 9.4 %; Neutrophils # 3.47 10^3/uL (1.8-7.7); Neutrophils % 65.5 %; Nucleated Red Blood Cells % 0 %; Platelet Count 163 10^3/cmm (157-399); Red Blood Count 4.56 10^6/uL (3.85-5.65); Red Cell Distribution Width 12.5 % (12.1-15.1)
[2023-10-17 09:13] LABS: Alanine Aminotransferase 11 U/L (0-41); Albumin Level 3.6 g/dL (3.5-5.2); Alkaline Phosphatase 104 U/L (40-130); Anion Gap 14.4 (5-19); Aspartate Amino Transferase 14 U/L (0-40); Blood Urea Nitrogen 12 mg/dL (8-23); Calcium 9.2 mg/dL (8.5-10.5); Carbon Dioxide 27 mmol/L (22-29); Chloride 105 mmol/L (98-107); Globulin 3.4 g/dL (1.3-4.6); Glucose 173 mg/dL (65-115); NT Pro B Type Natriuretic Pept 2424 pg/mL (0-450); Osmolality Calculated 298 mOsm/kg (285-295); Potassium 4.4 mmol/L (3.5-5.1); Sodium 142 mmol/L (136-145); Total Bilirubin 0.5 mg/dL (0.15-1.2)
[2023-10-17] MEDS: FUROsemide 10 mg/mL SDV 10mL 80 MG IVP (09:42)
--- NOTE | 2023-10-17 12:53 | DCPLANNER ---
Message was sent to wound care on at [phone]. Clinic to contact patient.
== END 2023-10-17 12:35 | disposition home or self-care (01) ==
PROVIDERS: Emergency Provider Family Medicine; PCP Family Medicine
DX: I48.91 Unspecified atrial fibrillation (principal); L03.116 Cellulitis of left lower limb; L03.115 Cellulitis of right lower limb; I87.8 Other specified disorders of veins; Z79.01 Long term (current) use of anticoagulants; Z95.0 Presence of cardiac pacemaker; Z86.73 Personal history of transient ischemic attack (TIA), and cerebral infarction without residual deficits; I11.0 Hypertensive heart disease with heart failure; I50.9 Heart failure, unspecified; L97.909 Non-pressure chronic ulcer of unspecified part of unspecified lower leg with unspecified severity
CPT/HCPCS: 71045; 80053; 83880; 85025; 93005; 99285; J1940

== ENCOUNTER → 2024-01-01 15:00 | Outpatient (BNVA) | payer MEDICARE, MEDICAID, SELFPAY | PROVIDERS: PCP Family Medicine; Visit Provider Internal Medicine Cardiovascular Disease | DX: R06.02 Shortness of breath (principal); I10 Essential (primary) hypertension | CPT/HCPCS: 36415; 80048; 83880; 99214 ==

== ENCOUNTER 2024-01-15 11:50 | Outpatient (CLI) | payer MEDICARE, MEDICAID, SELFPAY ==
--- NOTE | 2024-01-15 12:45 | USCV_ITS ---
Ashkan Janine Age: 78 Gender: M : 1945 Exam Date: 01/15/2024 12:23 Ordering Phys: Gene Del Rio MD ([email or web address]) Technologist: Exam Location: [place] Indication: rt leg swelling PROCEDURES: Venous duplex imaging was performed in only the right lower extremity. The following venous structures were evaluated: common femoral vein, profunda vein, proximal portion of the greater saphenous vein, superficial femoral vein, and the popliteal vein. In addition, the posterior tibial and peroneal trunk were evaluated. FINDINGS: Normal 2-D Doppler and augmentation and compressibility throughout the lower extremity venous structures. Additional imaging through the proximal calf veins also reveals no thrombus. Limited evaluation of the greater saphenous vein is patent with no thrombus. CONCLUSIONS No DVT right lower extremity. Dr. Tiny Patel DO (Electronically Signed) Final Date: 16 January 2024 13:37 S
== END 2024-01-15 11:51 | disposition home or self-care (01) ==
LOC: RAD 11:50
PROVIDERS: PCP Family Medicine; Visit Provider Internal Medicine Cardiovascular Disease
DX: M79.661 Pain in right lower leg (principal); M79.89 Other specified soft tissue disorders
CPT/HCPCS: 93971

== ENCOUNTER 2024-01-20 10:08 | Outpatient (CLI) | payer MEDICARE, MEDICAID, SELFPAY ==
[2024-01-20 11:06] LABS: Anion Gap 18.3 (5-19); Blood Urea Nitrogen 26 mg/dL (8-23); Calcium 9.1 mg/dL (8.5-10.5); Carbon Dioxide 27 mmol/L (22-29); Chloride 100 mmol/L (98-107); Glucose 156 mg/dL (65-115); NT Pro B Type Natriuretic Pept 2879 pg/mL (0-450); Osmolality Calculated 300 mOsm/kg (285-295); Potassium 4.3 mmol/L (3.5-5.1); Sodium 141 mmol/L (136-145)
== END 2024-01-20 10:09 | disposition home or self-care (01) ==
LOC: LAB 10:08
PROVIDERS: PCP Family Medicine; Visit Provider Internal Medicine Cardiovascular Disease
DX: I50.32 Chronic diastolic (congestive) heart failure (principal); I10 Essential (primary) hypertension
CPT/HCPCS: 36415; 80048; 83880

== ENCOUNTER → 2024-02-12 15:03 | Outpatient (BNVA) | payer MEDICARE, MEDICAID, SELFPAY | PROVIDERS: PCP Family Medicine; Visit Provider Internal Medicine Cardiovascular Disease | DX: Z45.010 Encounter for checking and testing of cardiac pacemaker pulse generator [battery] (principal) | CPT/HCPCS: 93296 ==

== ENCOUNTER → 2024-06-24 11:20 | Outpatient (BNVA) | payer MEDICARE, MEDICAID, SELFPAY | PROVIDERS: PCP Family Medicine; Visit Provider Internal Medicine Cardiovascular Disease | DX: Z45.018 Encounter for adjustment and management of other part of cardiac pacemaker (principal) | CPT/HCPCS: 93296 ==

== ENCOUNTER → 2024-07-01 14:54 | Outpatient (BNVA) | payer MEDICARE, MEDICAID, SELFPAY | PROVIDERS: PCP Family Medicine; Visit Provider Internal Medicine Cardiovascular Disease | DX: I95.9 Hypotension, unspecified (principal); I48.0 Paroxysmal atrial fibrillation; I50.32 Chronic diastolic (congestive) heart failure; Z95.0 Presence of cardiac pacemaker; I27.20 Pulmonary hypertension, unspecified | CPT/HCPCS: 99214 ==

== ENCOUNTER → 2024-12-30 09:29 | Outpatient (BNVA) | payer MEDICARE, MEDICAID, SELFPAY | PROVIDERS: PCP Family Medicine; Visit Provider Internal Medicine Cardiovascular Disease | DX: Z45.018 Encounter for adjustment and management of other part of cardiac pacemaker (principal) | CPT/HCPCS: 93296 ==

== ENCOUNTER → 2025-01-27 15:10 | Outpatient (BNVA) | payer MEDICARE, MEDICAID, SELFPAY | PROVIDERS: PCP Family Medicine; Visit Provider Internal Medicine Cardiovascular Disease | DX: I95.9 Hypotension, unspecified (principal); I48.0 Paroxysmal atrial fibrillation; I50.32 Chronic diastolic (congestive) heart failure; Z95.0 Presence of cardiac pacemaker; I27.20 Pulmonary hypertension, unspecified; R55 Syncope and collapse; Z79.01 Long term (current) use of anticoagulants | CPT/HCPCS: 99214 ==

== ENCOUNTER → 2025-04-28 09:43 | Outpatient (BNVA) | payer MEDICARE, MEDICAID, SELFPAY | PROVIDERS: PCP Family Medicine; Visit Provider Internal Medicine Cardiovascular Disease | DX: Z45.018 Encounter for adjustment and management of other part of cardiac pacemaker (principal) | CPT/HCPCS: 93296 ==

== ENCOUNTER → 2025-08-11 12:45 | Outpatient (BNVA) | payer MEDICARE, MEDICAID, SELFPAY | PROVIDERS: PCP Family Medicine; Visit Provider Internal Medicine Cardiovascular Disease | DX: Z45.018 Encounter for adjustment and management of other part of cardiac pacemaker (principal) | CPT/HCPCS: 93296 ==